=== PATIENT | female | born 1960 | race African-American/Black ===

== ENCOUNTER → 2016-07-17 | Outpatient (CLI) | payer MEDICARE, OTHER ==
[2016-03-08 17:45] VITALS: BP 178/77
[~2016-07-17] MED LIST: ACET325T21 PO; ALBU2.5V14 IH; AMLO10TA4 PO; AMLO5TAB2 PO; ASPI81TA50 PO; ATOR40TA59 PO; BUDE10.2 IH; CLON0.1T PO; CYCL10TA2 PO; ESOM40CA PO; ESOM40CA25 PO; FERR-26 AD; FLUT16SP2 NS; FLUT9.9S NS; HYDR-2868 PO; Hydrochlorothiazide PO; INSU100C4 SQ; INSU100I17 SQ; LEVO250T25 PO; LOSA50TA2 PO; METO10SO PO; MONT10TA6 PO; MONT10TA9 PO; NAPR250T2 PO; NAPR500T8 PO; OMAL150V SQ; OMEG1CAP2 PO; POLY17PO5 PO; POTA20TA4 PO; PRED-220 PO; SENN-22 PO; TELM40TA PO
--- NOTE | 2016-07-17 12:02 | RAD ---
DATE: 07/17/2016. EXAM: DIGITAL SCREEN BILAT W/CAD. HISTORY: Routine mammographic screening. COMPARISON: 01/25/2015. This study was interpreted with the benefit of Computerized Aided Detection (CAD). FINDINGS: The breast parenchyma is primarily fatty replaced. There is a new angular nodule inferior to the left nipple line m at the 6:00 position measuring 7 mm. Scattered coarse calcifications are unchanged. One cluster of calcifications posteriorly on the left is stable since 2010 and likely benign. There is no suspicious finding on the right. BI-RADS CATEGORY: 0 INCOMPLETE: NEEDS ADDITIONAL IMAGING EVALUATION AND/OR PRIOR MAMMOGRAMS FOR COMPARISON.. RECOMMENDED FOLLOW-UP: ADD ADDITIONAL IMAGING. Recommend spot compression of a new nodule at the left 6:00 position with sonography if necessary. PQRS compliance statement: Patient information was entered into a reminder system with a target due date (now) for the next mammogram. Mammography is a sensitive method for finding small breast cancers, but it does not detect them all and is not a substitute for careful clinical examination. A negative mammogram does not negate a clinically suspicious finding and should not result in delay in biopsying a clinically suspicious abnormality. "Our facility is accredited by the [employer] Mammography [employer]."
== END | disposition home or self-care (01) ==
LOC: MAMMO 10:12
PROVIDERS: ATTEND Internal Medicine
DX: Z12.31 Encounter for screening mammogram for malignant neoplasm of breast (principal)
CPT/HCPCS: G0202; 77067

== ENCOUNTER → 2016-07-24 | Outpatient (CLI) | payer MEDICARE, OTHER ==
[2016-03-08 17:45] VITALS: BP 178/77
--- NOTE | 2016-07-24 10:22 | RAD ---
Examination: Left breast diagnostic mammogram and targeted ultrasound the left breast History: History of nodule in the left breast Comparison: 07/27/2016 Technique: Part compression view of the left breast were performed. ML view of the left breast were performed. Targeted ultrasound of the left breast were performed from 6-9 o'clock position. Findings: On the spot compression views of the left breast , there is persistence of nodule at about 9:00 position. Targeted ultrasound the left breast there is a small 5 mm cystic structure containing some echogenicity within no significant vascular flow within. Impression: 5 mm cystic structure identified in the 9 o'clock position of the left breast containing some echogenicity within probably a cyst containing echogenicities within. BI-RADS Category 3. Probably benign findings. Recommend follow-up mammogram in 6 months.
== END | disposition home or self-care (01) ==
LOC: MAMMO 09:18
PROVIDERS: ATTEND Internal Medicine
DX: R92.8 Other abnormal and inconclusive findings on diagnostic imaging of breast (principal)
CPT/HCPCS: 76641; G0206; 77065

== ENCOUNTER → 2017-02-26 | Outpatient (CLI) | payer MEDICARE, OTHER ==
[2016-03-08 17:45] VITALS: BP 178/77
[~2017-02-26] MED LIST changes: -NAPR250T2 PO; +NAPR250T6 PO; +POLY17PO29 PO; -POLY17PO5 PO
--- NOTE | 2017-02-26 11:57 | RAD ---
DATE: 02/26/2017. EXAM: DIGITAL DIAGNOSTIC LT. HISTORY: Routine mammographic screening. COMPARISON: 07/24/2016, 07/17/2016, 01/25/2015. This study was interpreted with the benefit of Computerized Aided Detection (CAD). FINDINGS: The breast parenchyma shows scattered fibroglandular densities. Breast parenchyma level B.. The density of concern inferiorly on the MLO view and centrally on the CC view is unchanged since the prior study. This mammogram not correspond with a mildly complicated cyst on prior ultrasound. Elsewhere, coarse calcifications appear benign. There is no clearly suspicious finding. BI-RADS CATEGORY: 3 PROBABLY BENIGN FINDING(S)-SHORT INTERVAL FOLLOW-UP SUGGESTED. RECOMMENDED FOLLOW-UP: 6M 6 MONTH FOLLOW-UP. Continued attention to the density of concern posteriorly and inferiorly on the left when the patient returns for her bilateral study in 6 months. PQRS compliance statement: Patient information was entered into a reminder system with a target due date 08/27/2017 for the next mammogram. Mammography is a sensitive method for finding small breast cancers, but it does not detect them all and is not a substitute for careful clinical examination. A negative mammogram does not negate a clinically suspicious finding and should not result in delay in biopsying a clinically suspicious abnormality. "Our facility is accredited by the [employer] Mammography [employer]."
== END | disposition home or self-care (01) ==
LOC: MAMMO 11:10
PROVIDERS: ATTEND Internal Medicine
DX: R92.8 Other abnormal and inconclusive findings on diagnostic imaging of breast (principal)
CPT/HCPCS: G0206; 77065

== ENCOUNTER → 2017-07-23 | Outpatient (CLI) | payer MEDICARE, OTHER | END | disposition home or self-care (01) | LOC: US 11:02 | DX: M79.605 Pain in left leg (principal); M79.89 Other specified soft tissue disorders | CPT/HCPCS: 93971 ==

== ENCOUNTER → 2018-01-21 | Outpatient (CLI) | payer MEDICARE, OTHER ==
[2017-11-18 11:00] VITALS: BP 150/66
[~2018-01-21] MED LIST changes: -AMLO5TAB2 PO; +AMLO5TAB7 PO; +CARV12.52 PO; +CEPH250C PO; -FERR-26 AD; +FERR325T14 AD; +FLUT16SP NS; +FURO40TA4 PO; +GABA-586 PO; +LACT1CAP19 PO; +METO10TA PO; +METO10TA81 PO; +TRAM50TA PO
--- NOTE | 2018-01-21 10:51 | KCIC ---
EXAM: Dual energy x-ray absorptiometry (DEXA). HISTORY: Postmenopausal female presents for osteoporosis screening. COMPARISON: None. TECHNIQUE: Dual energy x-ray absorptiometry of the lumbar spine and left hip was performed. Calculation of bone mineral density based on standard deviations above or below the expected young adult normal value (T-score) was completed. FINDINGS: The average bone mineral density in the 1st through 4th lumbar vertebrae is 1.044 g/cmxcm, corresponding with a T-score of -0.0. The average total bone mineral density in the left hip is 0.887 g/cmxcm, corresponding with a T-score of -0.5. IMPRESSION: Normal bone mineral density. Note: Definitions established by the World Health Organization: 1. Normal: T-score is -1.0 or above. 2. Osteopenia: T-score is between -1.0 and -2.5 . 3. Osteoporosis: T-score is -2.5 or below. Electronically signed by: Divine Nazario MD (01/21/2018 10:48 AM) [facility]
== END | disposition home or self-care (01) ==
LOC: KCIC DEXA 09:42
PROVIDERS: ATTEND Internal Medicine
DX: M85.88 Other specified disorders of bone density and structure, other site (principal); M81.0 Age-related osteoporosis without current pathological fracture; Z78.0 Asymptomatic menopausal state
CPT/HCPCS: 77080

== ENCOUNTER 2018-10-25 21:50 | Emergency (ER) | payer MEDICARE, MEDICAID ==
[~2018-10-25] VITALS: Ht 134.6 cm; Wt 154.2 kg
[~2018-10-25 21:50] MED LIST changes: +AMLO5TAB10 PO; -AMLO5TAB7 PO; +CARV12.511 PO; -CARV12.52 PO; -GABA-586 PO; +GABA300C18 PO; +LOSA-73 PO; -LOSA50TA2 PO; +MONT10TA49 PO; -MONT10TA6 PO; -MONT10TA9 PO
[2018-10-25 23:36] LABS: BILIRUBIN,URINE NEGATIVE (NEG); CLARITY,URINE CLEAR; COLOR,URINE YELLOW; NITRITE,URINE NEGATIVE (NEG); PH,URINE 6.5; PROTEIN,URINE 100 mg/dL (NEG-TRACE); UROBILINOGEN,URINE 0.2 mg/dL (0.2 mg/dL)
[2018-10-25 23:42] LABS: BACTERIA,URINE FEW /HPF (0-FEW); RBC,URINE OCC /HPF (0-2)
[2018-10-25 23:43] LABS: SQUAMOUS EPITHELIAL CELL,UR MOD /LPF
[2018-10-25] MEDS ORDERED: ONDANSETRON PF 4 MG/2 ML VIAL. IV ONE (23:45)
[2018-10-25] MEDS ORDERED: FAMOTIDINE 20 MG/2 ML VIAL IVP ONE (23:45)
[2018-10-25] MEDS ORDERED: KETOROLAC 15 MG/ML VIAL. IV ONE (23:45)
[2018-10-25] MEDS ORDERED: IV NORMAL SALINE 1000ML BAG 1,000 ML IV ONE (23:45)
[2018-10-26 00:45] LABS: BASO # 0.1 x10^3/uL (0.0-0.2); BASO % 1 % (0-3); EOS # 0.3 x10^3/uL (0.0-0.7); EOS % 3 % (0-3); HEMATOCRIT 31.8 % (36.0-47.0); LYMPH # 1.8 x10^3/uL (1.0-4.8); LYMPH % 21 % (24-48); MEAN CORPUSCULAR HEMOGLOBIN 24 pg (25-35); MEAN CORPUSCULAR HGB CONC 31 g/dL (31-37); MEAN CORPUSCULAR VOLUME 77 fL (79-100); MONO # 0.7 x10^3/uL (0.0-1.1); MONO % 8 % (0-9); NEUT # 5.9 x10^3uL (1.8-7.7); NEUT % 66 % (31-73); PLATELET COUNT 299 x10^3/uL (140-400); RED BLOOD COUNT 4.12 x10^6/uL (3.50-5.40); RED CELL DISTRIBUTION WIDTH 16.4 % (11.5-14.5); WHITE BLOOD COUNT 8.8 x10^3/uL (4.0-11.0)
[2018-10-26 00:58] LABS: CALCIUM 9.4 mg/dL (8.5-10.1); CREATININE 0.6 mg/dL (0.6-1.0); GFR 123.4; POTASSIUM 3.8 mmol/L (3.5-5.1)
[2018-10-26 01:05] LABS: ALBUMIN 3.5 g/dL (3.4-5.0); ALBUMIN/GLOBULIN RATIO 0.8 (1.0-1.7); MAGNESIUM 1.9 mg/dL (1.8-2.4); TOTAL BILIRUBIN 0.4 mg/dL (0.2-1.0)
--- NOTE | 2018-10-26 01:38 | RAD ---
PQRS Compliance Statement: One or more of the following individualized dose reduction techniques were utilized for this examination: 1. Automated exposure control 2. Adjustment of the mA and/or kV according to patient size 3. Use of iterative reconstruction technique CT ABDOMEN PELVIS WO CONTRAST Clinical Indication: Abdominal pain, history of umbilical hernia. Comparison: CT abdomen and pelvis without contrast November 17, 2017. Technique: Helical CT imaging of the abdomen and pelvis is performed without IV or oral contrast. Findings: Evaluation of solid organs and bowel is limited without oral and IV contrast, decreasing sensitivity for detection of pathology. Lung bases are clear. Cardiac size normal. Tiny hiatal hernia. Hepatomegaly. Mild fatty infiltration of the liver. Focal fatty sparing along the gallbladder fossa. The gallbladder, spleen, pancreas, adrenal glands, abdominal aorta, and kidneys are normal. Stomach unremarkable. There is a supraumbilical hernia that contains loops of small bowel, unchanged from prior study. There is no small bowel obstruction. More inferiorly there is a second hernia near the umbilicus that contains a short loop of small bowel, also unchanged. There is no colon wall thickening. Moderate colon stool volume. The appendix is normal. No abdominal adenopathy or free fluid. Urinary bladder is mostly decompressed. Hysterectomy. No pelvic free fluid. Mildly enlarged bilateral inguinal lymph nodes are unchanged and may be reactive. Osteitis condensans ilii. IMPRESSION: 1. No acute abdominal or pelvic abnormality. 2. Unchanged ventral hernias containing nonobstructed small bowel. 3. Hepatomegaly. Mild fatty infiltration of the liver. Electronically signed by: Ryan Franklin MD (10/26/2018 1:35 AM) [facility]
[2018-10-26] MEDS ORDERED: NEOMY/BACITR/POLYMYXIN OINT PACKET. TP ONE (02:45)
[2018-10-26 03:10] VITALS: BP 178/86
[2018-10-26] MEDS ORDERED: MAGN296S9 PO (03:12)
[2018-10-26] MEDS ORDERED: SENN-121 PO (03:12)
[2018-10-26] MEDS ORDERED: ONDA4TAB12 PO (03:12)
[2018-10-26] MEDS ORDERED: METR500T PO (03:12)
--- NOTE | 2018-10-26 03:12 | PHYS DOC ---
Past Medical History Past Medical History: Diabetes-Type II, High Cholesterol, Hypertension Additional Past Medical Histor: abd Hernia Past Surgical History: Hysterectomy, Other Additional Past Surgical Histo: HERNIA REPAIR Alcohol Use: None Drug Use: None Adult General Chief Complaint Chief Complaint: ABDOMINAL PAIN HPI HPI Patient is a 58 year old [f__sex] who presents with [] Review of Systems Review of Systems Constitutional: Denies fever or chills [] Eyes: Denies change in visual acuity, redness, or eye pain [] HENT: Denies nasal congestion or sore throat [] Respiratory: Denies cough or shortness of breath [] Cardiovascular: No additional information not addressed in HPI [] GI: Denies abdominal pain, nausea, vomiting, bloody stools or diarrhea [] : Denies dysuria or hematuria [] Musculoskeletal: Denies back pain or joint pain [] Integument: Denies rash or skin lesions [] Neurologic: Denies headache, focal weakness or sensory changes [] Endocrine: Denies polyuria or polydipsia [] All other systems were reviewed and found to be within normal limits, except as documented in this note. Current Medications Current Medications Current Medications Medications (Trade) Dose Ordered Sig/Dorinda Start Time Stop Time Status Last Admin Dose Admin Famotidine (Pepcid Vial) 20 mg 1X ONCE 10/25/18 23:45 10/25/18 23:46 DC 10/26/18 00:56 20 MG Ketorolac Tromethamine (Toradol 15mg Vial) 15 mg 1X ONCE 10/25/18 23:45 10/25/18 23:46 DC 10/26/18 00:55 15 MG Metronidazole (Flagyl) 500 mg STK-MED ONCE 10/26/18 03:17 10/26/18 03:18 DC Neomycin/ Polymyxin/ Bacitracin (Triple Antibiotic Ointment) 1 pkt 1X ONCE 10/26/18 02:45 10/26/18 02:46 DC 10/26/18 03:18 1 PKT Ondansetron HCl (Zofran) 4 mg 1X ONCE 10/25/18 23:45 10/25/18 23:46 DC 10/26/18 00:55 4 MG Sodium Chloride 1,000 ml @ 1,000 mls/hr 1X ONCE 10/25/18 23:45 10/26/18 00:44 DC 10/26/18 00:54 1,000 MLS/HR Allergies Allergies Allergies Coded Allergies Type Severity Reaction Last Updated Verified diphenhydramine Allergy Severe ANAPHYLAXIS 01/24/16 Yes egg Allergy Severe Anaphylaxis 01/24/16 Yes salmeterol Allergy Severe Anaphylaxis, throat swells 01/24/16 Yes Iodinated Contrast- Oral and IV Dye Allergy Intermediate 01/24/16 Yes Penicillins Allergy Intermediate Hives, HAS TOLERATED CEPHALEXIN 08/29/17 Yes Sulfa (Sulfonamide Antibiotics) Allergy Intermediate Hives 01/24/16 Yes morphine Allergy Intermediate hives 01/24/16 Yes sulfamethoxazole Allergy Intermediate Hives 01/24/16 Yes trimethoprim Allergy Intermediate Hives 01/24/16 Yes Physical Exam Physical Exam Constitutional: Well developed, well nourished, no acute distress, non-toxic appearance. [] HENT: Normocephalic, atraumatic, bilateral external ears normal, oropharynx moist, no oral exudates, nose normal. [] Eyes: PERRLA, EOMI, conjunctiva normal, no discharge. [] Neck: Normal range of motion, no tenderness, supple, no stridor. [] Cardiovascular:Heart rate regular rhythm, no murmur [] Lungs & Thorax: Bilateral breath sounds clear to auscultation [] Abdomen: Bowel sounds normal, soft, no tenderness, no masses, no pulsatile masses. [] Skin: Warm, dry, no erythema, no rash. [] Back: No tenderness, no CVA tenderness. [] Extremities: No tenderness, no cyanosis, no clubbing, ROM intact, no edema. [] Neurologic: Alert and oriented X 3, normal motor function, normal sensory function, no focal deficits noted. [] Psychologic: Affect normal, judgement normal, mood normal. [] Current Patient Data Vital Signs Vital Signs Date Time Temp Pulse Resp B/P (MAP) Pulse Ox O2 Delivery O2 Flow Rate FiO2 10/26/18 03:10 178/86 (116) 10/26/18 00:34 78 20 98 Room Air 10/25/18 21:55 98.1 98.1 Lab Values Laboratory Tests Test 10/25/18 22:50 10/26/18 00:35 Urine Collection Type Unknown Urine Color Yellow Urine Clarity Clear Urine pH 6.5 Urine Specific [place] 1.020 Urine Protein 100 mg/dL (NEG-TRACE) Urine Glucose (UA) Negative mg/dL (NEG) Urine Ketones (Stick) Negative mg/dL (NEG) Urine Blood Negative (NEG) Urine Nitrite Negative (NEG) Urine Bilirubin Negative (NEG) Urine Urobilinogen Dipstick 0.2 mg/dL (0.2 mg/dL) Urine Leukocyte Esterase Negative (NEG) Urine RBC Occ /HPF (0-2) Urine WBC 1-4 /HPF (0-4) Urine Squamous Epithelial Cells Mod /LPF Urine Bacteria Few /HPF (0-FEW) Urine Mucus Mod /LPF White Blood Count 8.8 x10^3/uL (4.0-11.0) Red Blood Count 4.12 x10^6/uL (3.50-5.40) Hemoglobin 10.0 g/dL (12.0-15.5) L Hematocrit 31.8 % (36.0-47.0) L Mean Corpuscular Volume 77 fL (79-100) L Mean Corpuscular Hemoglobin 24 pg (25-35) L Mean Corpuscular Hemoglobin Concent 31 g/dL (31-37) Red Cell Distribution Width 16.4 % (11.5-14.5) H Platelet Count 299 x10^3/uL (140-400) Neutrophils (%) (Auto) 66 % (31-73) Lymphocytes (%) (Auto) 21 % (24-48) L Monocytes (%) (Auto) 8 % (0-9) Eosinophils (%) (Auto) 3 % (0-3) Basophils (%) (Auto) 1 % (0-3) Neutrophils # (Auto) 5.9 x10^3uL (1.8-7.7) Lymphocytes # (Auto) 1.8 x10^3/uL (1.0-4.8) Monocytes # (Auto) 0.7 x10^3/uL (0.0-1.1) Eosinophils # (Auto) 0.3 x10^3/uL (0.0-0.7) Basophils # (Auto) 0.1 x10^3/uL (0.0-0.2) Sodium Level 140 mmol/L (136-145) Potassium Level 3.8 mmol/L (3.5-5.1) Chloride Level 104 mmol/L (98-107) Carbon Dioxide Level 27 mmol/L (21-32) Anion Gap 9 (6-14) Blood Urea Nitrogen 10 mg/dL (7-20) Creatinine 0.6 mg/dL (0.6-1.0) Estimated GFR (Cockcroft-Gault) 123.4 BUN/Creatinine Ratio 17 (6-20) Glucose Level 108 mg/dL (70-99) H Lactic Acid Level 1.1 mmol/L (0.4-2.0) Calcium Level 9.4 mg/dL (8.5-10.1) Magnesium Level 1.9 mg/dL (1.8-2.4) Total Bilirubin 0.4 mg/dL (0.2-1.0) Aspartate Amino Transferase (AST) 16 U/L (15-37) Alanine Aminotransferase (ALT) 24 U/L (14-59) Alkaline Phosphatase 80 U/L (46-116) Creatine Kinase 88 U/L (26-192) Creatine Kinase MB (Mass) 0.9 ng/mL (0.0-3.6) Creatine Kinase MB Relative Index 1.0 % (0-4) Troponin I Quantitative < 0.017 ng/mL (0.000-0.055) Total Protein 8.0 g/dL (6.4-8.2) Albumin 3.5 g/dL (3.4-5.0) Albumin/Globulin Ratio 0.8 (1.0-1.7) L Lipase 140 U/L (73-393) Laboratory Tests 10/26/18 00:35 Laboratory Tests 10/26/18 00:35 Microbiology 10/26/18 Wet Prep - Final, Complete EKG EKG @0049 NSR at 81bpm, NO ST elevation, nonspecific t wave inversion III Radiology/Procedures Radiology/Procedures [] Course & Med Decision Making Course & Med Decision Making Pertinent Labs and Imaging studies reviewed. (See chart for details) [] Dragon Disclaimer Dragon Disclaimer This electronic medical record was generated, in whole or in part, using a voice recognition dictation system. Departure Departure Impression: Primary Impression: Abdominal pain Additional Impressions: Hernia Encounter for staple removal Bacterial vaginosis Constipation Disposition: HOME, SELF-CARE Condition: STABLE Referrals: HARINDER NOGUEIRA MD (PCP) KAT GOLDSTEIN MD Patient Instructions: Abdominal Pain (Nonspecific), Bacterial Vaginosis, [id number], Constipation, Adult, [id number], Hernia, [id number], Staple Removal, Care After Scripts Magnesium Citrate (MAGNESIUM CITRATE) 296 Ml Solution 296 ML PO ONCE PRN for CONSTIPATION, #296 ML Prov: HARINDER CHEW DO 10/26/18 Metronidazole (FLAGYL) 500 Mg Tablet 500 MG PO BID for Vaginosis for 7 Days, #14 TAB Prov: HARINDER CHEW DO 10/26/18 Ondansetron (ONDANSETRON ODT) 4 Mg Tab.rapdis 1 TAB PO PRN Q6-8HRS PRN for NAUSEA, #16 TAB Prov: HARINDER CHEW DO 10/26/18 Sennosides/Docusate Sodium (Colace 2-in-1 Tablet) 1 Each Tablet 1 EACH PO QHS, #30 TAB Prov: HARINDER CHEW DO 10/26/18 Problem Qualifiers Primary Impression: Abdominal pain Abdominal location: generalized Qualified Codes: R10.84 - Generalized abdominal pain Additional Impressions: Constipation Constipation type: unspecified constipation type Qualified Codes: K59.00 - Constipation, unspecified HARINDER CHEW DO Oct 26, 2018 03:12
[2018-10-26] MEDS ORDERED: metroNIDAZOLE 500 MG TABLET PO ONE (03:15)
[2018-10-26] MEDS ORDERED: metroNIDAZOLE 500 MG TABLET ONE (03:17)
--- NOTE | 2018-10-26 03:56 | EKG ---
[facility] [address] [place] [address] Test Date: 2018-10-26 Test Time: 00:49:45 Pat Name: YENNIFER CANCINO Department: Room: Gender: F [employer]ter [employer]: : 1960 Requested By: HARINDER CHEW Order Number: [id number] Reading MD: Measurements Intervals [place] Rate: 81 P: 64 ND: 172 QRS: -6 QRSD: 82 T: 4 QT: 358 QTc: 416 Interpretive Statements SINUS RHYTHM LEFTWARD AXIS QRS(T) CONTOUR ABNORMALITY CONSIDER ANTEROLATERAL MYOCARDIAL DAMAGE POSSIBLY ABNORMAL ECG RI6.01 Unconfirmed report No previous ECG available for comparison
[2018-10-27 15:17] LABS: GC PROBE Negative (Negative)
== END 2018-10-26 03:30 | disposition home or self-care (01) ==
LOC: ER 21:50
DX: K59.00 Constipation, unspecified (principal); K42.9 Umbilical hernia without obstruction or gangrene; N76.0 Acute vaginitis; B96.89 Other specified bacterial agents as the cause of diseases classified elsewhere; E11.9 Type 2 diabetes mellitus without complications; I10 Essential (primary) hypertension; E78.00 Pure hypercholesterolemia, unspecified; Z98.890 Other specified postprocedural states; Z90.710 Acquired absence of both cervix and uterus; Z88.5 Allergy status to narcotic agent; Z88.0 Allergy status to penicillin; Z88.1 Allergy status to other antibiotic agents; Z88.2 Allergy status to sulfonamides; Z91.041 Radiographic dye allergy status; Z91.012 Allergy to eggs; Z88.8 Allergy status to other drugs, medicaments and biological substances
CPT/HCPCS: 36415; 74176; 80053; 81001; 82553; 83605; 83690; 83735; 84484; 85025; 87040; 87491; 87591; 93005; 96374; 96375; 99285; J1885; J2405; J3490; J7030; Q0111

== ENCOUNTER 2020-05-05 04:08 | Emergency (ER) | payer MEDICARE, MEDICAID ==
[~2020-05-05] VITALS: Ht 134.6 cm; Wt 118.2 kg
[~2020-05-05 04:08] MED LIST changes: +AMLO-186 PO; -AMLO5TAB10 PO; +MAGN296S68 PO; +METR500T PO; +ONDA4TAB12 PO; +SENN-121 PO
--- NOTE | 2020-05-05 04:39 | PHYS DOC ---
Past Medical History Past Medical History: Diabetes-Type II, High Cholesterol, Hypertension, Other Additional Past Medical Histor: ABD HERNIA (KAT DEL REAL MD) Past Surgical History: Hysterectomy, Tonsillectomy, Other Additional Past Surgical Histo: ABD HERNIA REPAIR (KAT DEL REAL MD) Smoking Status: Never Smoker Alcohol Use: None Drug Use: None (KAT DEL REAL MD) General Adult EDM: Chief Complaint: CHEST PAIN HPI: HPI: Patient is a 60 year old female who presents with chief complaint of abdominal pain and chest pain. Patient states about 6 PM last night she began having periumbilical pain that radiates to her chest. Pain is described as a discomfort and pressure in nature. Patient has had associated shortness of breath with nausea vomiting. Pain is worse with palpation and better with rest. Patient has not had any diarrhea or constipation. Patient denies any fever. Pain is currently severe and intensity. (KAT DEL REAL MD) Review of Systems: Review of Systems: Constitutional: Denies fever or chills. [] Eyes: Denies change in visual acuity. [] HENT: Denies nasal congestion or sore throat. [] Respiratory: Denies cough but has had shortness of breath. [] Cardiovascular: Complains of chest pain with some swelling in the legs GI: Complains abdominal pain with nausea vomiting but no blood in the stool or diarrhea or constipation : Denies dysuria. [] Musculoskeletal: Denies back pain or joint pain. [] Integument: Denies rash. [] Neurologic: Denies headache, focal weakness or sensory changes. [] Endocrine: Denies polyuria or polydipsia. [] Lymphatic: Denies swollen glands. [] Psychiatric: Denies depression or anxiety. [] (KAT DEL REAL MD) Heart Score: HEART Score for Chest Pain: HEART Score for Chest Pain Response (Comments) Value History Moderately Suspicious 1 ECG Nonspecific Repolarizatio 1 Age >45 - < 65 1 Risk Factors >3 Risk Factors or Hx CAD 2 Total 5 Risk Factors: Risk Factors: DM, Current or recent (<one month) smoker, HTN, HLP, family history of CAD, obesity. Risk Scores: Score 0 - 3: 2.5% MACE over next 6 weeks - Discharge Home Score 4 - 6: 20.3% MACE over next 6 weeks - Admit for Clinical Observation Score 7 - 10: 72.7% MACE over next 6 weeks - Early Invasive Strategies (KAT DEL REAL MD) Current Medications: Current Medications Ondansetron HCl (Zofran) 4 mg 1X ONCE IVP Last administered on 05/05/20at 04:54; Start 05/05/20 at 04:45; Stop 05/05/20 at 04:46; Status DC Sodium Chloride 1,000 ml @ 1,000 mls/hr 1X ONCE IV Last administered on 05/05at 04:54; Start 05/05/20 at 04:45; Stop 05/05/20 at 05:44; Status DC Barium Sulfate (Readi-Cat 2) 900 ml 1X ONCE PO ; Start 05/05/20 at 05:15; Stop 05/05/20 at 05:16; Status DC Active Scripts Active Magnesium Citrate 296 Ml Solution 296 Ml PO ONCE PRN Flagyl (Metronidazole) 500 Mg Tablet 500 Mg PO BID 7 Days Ondansetron Odt (Ondansetron) 4 Mg Tab.rapdis 1 Tab PO PRN Q6-8HRS PRN Colace 2-in-1 Tablet (Sennosides/Docusate Sodium) 1 Each Tablet 1 Each PO QHS Metoclopramide Hcl 10 Mg Tablet 10 Mg PO QIDACHS 30 Days Cozaar (Losartan Potassium) 50 Mg Tablet 100 Mg PO DAILY 30 Days Atorvastatin Calcium 40 Mg Tablet 40 Mg PO QHS 30 Days Montelukast Sodium Tablet (Montelukast Sodium) 10 Mg Tablet 10 Mg PO QHS Klor-Con M20 (Potassium Chloride) 20 Meq Tablet.er 20 Meq PO DAILYWBKFT Reported Furosemide 40 Mg Tablet 1 Tab PO DAILY Fluticasone Propionate Nasal Eldena (Fluticasone Propionate) 16 Gm Eldena.susp 2 Eldena NS DAILY Amlodipine Besylate 5 Mg Tablet 5 Mg PO DAILY Ferrous Sulfate 325 Mg Tablet 325 Mg AD DAILY LAST DOSE: 10/03/15 AM NEXT DOSE: 10/04/15 AM Nexium Capsule (Esomeprazole Magnesium) 40 Mg Capsule.dr 40 Mg PO DAILYAC LAST DOSE: 10/03/15 AM NEXT DOSE: 10/04/15 AM Aspir-Low (Aspirin) 81 Mg Tablet.dr 1 Tab PO DAILY LAST DOSE: 10/03/15 AM NEXT DOSE: 10/04/15 AM Albuterol Sulfate Conc Neb Soln (Albuterol Sulfate) 2.5 Mg/0.5 Ml Vial.neb 2.5 Mg IH TID (KAT DEL REAL MD) Allergies: Allergies: Allergies Coded Allergies Type Severity Reaction Last Updated Verified diphenhydramine Allergy Severe ANAPHYLAXIS 01/24/16 Yes egg Allergy Severe Anaphylaxis 01/24/16 Yes salmeterol Allergy Severe Anaphylaxis, throat swells 01/24/16 Yes Iodinated Contrast Media Allergy Intermediate 01/24/16 Yes Penicillins Allergy Intermediate Hives, HAS TOLERATED CEPHALEXIN 08/29/17 Yes Sulfa (Sulfonamide Antibiotics) Allergy Intermediate Hives 01/24/16 Yes morphine Allergy Intermediate hives 01/24/16 Yes sulfamethoxazole Allergy Intermediate Hives 01/24/16 Yes trimethoprim Allergy Intermediate Hives 01/24/16 Yes (KAT DEL REAL MD) Physical Exam: PE: Constitutional: Well developed, well nourished, mild distress HENT: Normocephalic, atraumatic, bilateral external ears normal, no trismus nose normal. [] Eyes: PERRLA, EOMI, conjunctiva normal, no discharge. [] Neck: Normal range of motion, no tenderness, supple, no stridor. [] Cardiovascular:Heart rate regular rhythm, peripheral pulses intact cap refill is brisk Lungs & Thorax: Diminished breath sounds bilaterally Abdomen: Abdomen soft with tenderness mostly in the periumbilical area, there a ppears to be umbilical hernia that is tender. No guarding or rebound, no masses, no pulsatile masses Skin: Warm, dry, no erythema, no rash. [] Back: No tenderness, no CVA tenderness. [] Extremities: No tenderness, no cyanosis, no clubbing, ROM intact, mild bilateral lower extremity edema Neurologic: Alert and oriented X 3, normal motor function, normal sensory function, no focal deficits noted. [] Psychologic: Affect normal, judgement normal, mood normal. [] (KAT DEL REAL MD) Current Patient Data: Labs: Laboratory Tests Test 05/05/20 04:40 05/05/20 04:41 Urine Collection Type Unknown Urine Color Yellow Urine Clarity Clear Urine pH 7.5 Urine Specific [place] 1.010 Urine Protein 100 mg/dL Urine Glucose (UA) 100 mg/dL Urine Ketones (Stick) 15 mg/dL Urine Blood Negative Urine Nitrite Negative Urine Bilirubin Negative Urine Urobilinogen Dipstick 0.2 mg/dL Urine Leukocyte Esterase Negative Urine RBC 0 /HPF Urine WBC Rare /HPF Urine Squamous Epithelial Cells Few /LPF Urine Bacteria Few /HPF White Blood Count 11.1 x10^3/uL Red Blood Count 4.47 x10^6/uL Hemoglobin 10.4 g/dL Hematocrit 33.4 % Mean Corpuscular Volume 75 fL Mean Corpuscular Hemoglobin 23 pg Mean Corpuscular Hemoglobin Concent 31 g/dL Red Cell Distribution Width 17.2 % Platelet Count 361 x10^3/uL Neutrophils (%) (Auto) 86 % Lymphocytes (%) (Auto) 8 % Monocytes (%) (Auto) 6 % Eosinophils (%) (Auto) 0 % Basophils (%) (Auto) 0 % Neutrophils # (Auto) 9.6 x10^3/uL Lymphocytes # (Auto) 0.9 x10^3/uL Monocytes # (Auto) 0.6 x10^3/uL Eosinophils # (Auto) 0.0 x10^3/uL Basophils # (Auto) 0.0 x10^3/uL Segmented Neutrophils % 82 % Lymphocytes % 13 % Monocytes % 4 % Eosinophils % 1 % Platelet Estimate Adequate Hypochromasia Slight Anisocytosis Slight Microcytosis Slight Prothrombin Time 12.6 SEC Prothromb Time International Ratio 1.0 Activated Partial Thromboplast Time 28 SEC Current Medications Medications (Trade) Dose Ordered Sig/Dorinda Route PRN Reason Start Time Stop Time Status Last Admin Dose Admin Ondansetron HCl (Zofran) 4 mg 1X ONCE IVP 05/05/20 04:45 05/05/20 04:46 DC 05/05/20 04:54 Sodium Chloride 1,000 ml @ 1,000 mls/hr 1X ONCE IV 05/05/20 04:45 05/05/20 05:44 DC 05/05/20 04:54 Barium Sulfate (Readi-Cat 2) 900 ml 1X ONCE PO 05/05/20 05:15 05/05/20 05:16 DC Vital Signs: Vital Signs Date Time Temp Pulse Resp B/P (MAP) Pulse Ox O2 Delivery O2 Flow Rate FiO2 05/05/20 05:33 100 194/79 (117) 98 Room Air 05/05/20 05:03 92 190/85 (120) 98 Room Air 05/05/20 04:57 100 199/92 (127) 99 Room Air 05/05/20 04:20 96.7 94 24 184/82 (116) 99 Room Air 96.7 (KAT DEL REAL MD) EKG: EKG: [] EKG interpreted by me normal sinus rhythm with a rate of 93 left axis shelton ation, left bundle branch block, prolonged QTC nonspecific ST changes (KAT DEL REAL MD) Radiology/Procedures: Radiology/Procedures: [] (KAT DEL REAL MD) Course & Med Decision Making: Course & Med Decision Making Pertinent Labs and Imaging studies reviewed. (See chart for details) [] 5:45 AM patient actively vomiting the contrast. 60-year-old female presents with abdominal pain radiating to her chest. Patient has a helical hernia that is tender, I worry it may be incarcerated. Patient is actively vomiting. Patient's initial blood was hemolyzed therefore was recent. Patient CT, chest x-ray read and chemistry are pending and care will be signed over to Dr. Lo to follow-up on these as well as her disposition. (KAT DEL REAL MD) Course & Med Decision Making Assumed care of patient at checkout. At checkout patient had lab work and a CT abdomen pelvis that was pending. She presented to the emergency room with chest pain and periumbilical pain. Per previous physician's evaluation patient did not have any true significant chest pain and mostly had abdominal pain with nausea and vomiting. CT abdomen pelvis does not show an acute obstruction. It is unchanged from previous CT. Patient had a single episode of vomiting here in emergency room which resolved prior to me taking her care. I did offer the patient admission for evaluation by a surgery and potentially cardiology. At this time the patient declines. She does not want to be admitted. She wants to go home with nausea medicine. We have discussed that if her symptoms return that she should return immediately to the emergency room for reevaluation and admission. Patient's test results and vitals while in the ED were fully reviewed and discussed with the patient. Patient is stable and at this time does not need admission to the hospital. We have discussed strict return precautions and the importance of following up with their Primary Care Physician. Patient stated understanding and was given an opportunity to ask any questions. Patient is in agreement with plan. (RAFAELA LO MD) Karen Disclaimer: [place] Disclaimer: This electronic medical record was generated, in whole or in part, using a voice recognition dictation system. (KAT DEL REAL MD) Departure Departure Impression: Primary Impression: Abdominal pain Additional Impressions: Nausea and vomiting Chest pain Disposition: 01 DC HOME SELF CARE/HOMELESS Condition: STABLE Referrals: HARINDER NOGUEIRA MD (PCP) Patient Instructions: Hernia, Nausea and Vomiting Scripts Ondansetron Hcl (ZOFRAN) 4 Mg Tablet 1 TAB PO PRN Q6-8HRS for nausea, #12 TAB Prov: RAFAELA LO MD 05/05/20 KAT DEL REAL MD May 05, 2020 04:39 RAFAELA LO MD May 05, 2020 08:10
[2020-05-05] MEDS ORDERED: IV NORMAL SALINE 1000ML BAG 1,000 ML IV ONE (04:45)
[2020-05-05] MEDS ORDERED: ONDANSETRON PF 4 MG/2 ML VIAL. IVP ONE (04:45)
[2020-05-05 05:01] LABS: BASO % 0 % (0-3); EOS % 0 % (0-3); HEMATOCRIT 33.4 % (36.0-47.0); HEMOGLOBIN 10.4 g/dL (12.0-15.5); LYMPH # 0.9 x10^3/uL (1.0-4.8); LYMPH % 8 % (24-48); MEAN CORPUSCULAR HEMOGLOBIN 23 pg (25-35); MEAN CORPUSCULAR HGB CONC 31 g/dL (31-37); MEAN CORPUSCULAR VOLUME 75 fL (79-100); MONO # 0.6 x10^3/uL (0.0-1.1); MONO % 6 % (0-9); NEUT # 9.6 x10^3/uL (1.8-7.7); NEUT % 86 % (31-73); PLATELET COUNT 361 x10^3/uL (140-400); RED BLOOD COUNT 4.47 x10^6/uL (3.50-5.40); RED CELL DISTRIBUTION WIDTH 17.2 % (11.5-14.5); WHITE BLOOD COUNT 11.1 x10^3/uL (4.0-11.0)
[2020-05-05 05:01] LABS: BILIRUBIN,URINE NEGATIVE (NEG); CLARITY,URINE CLEAR; COLOR,URINE YELLOW; NITRITE,URINE NEGATIVE (NEG); PH,URINE 7.5 (<5.0-8.0); PROTEIN,URINE 100 mg/dL (NEG-TRACE); UROBILINOGEN,URINE 0.2 mg/dL (0.2 mg/dL)
[2020-05-05 05:10] LABS: PROTHROMBIN TIME PATIENT 12.6 SEC (11.7-14.0)
[2020-05-05] MEDS ORDERED: BARIUM SULFATE 2.1% 450 ML SUSP PO ONE (05:15)
[2020-05-05 05:18] LABS: BACTERIA,URINE FEW /HPF (0-FEW); RBC,URINE 0 /HPF (0-2); WBC,URINE RARE /HPF (0-4)
[2020-05-05 05:37] LABS: % EOS 1 % (0-5); % LYMPHS 13 % (24-48); % MONOS 4 % (0-10); % SEGS 82 % (35-66); ANISOCYTOSIS SLIGHT; HYPOCHROMIA SLIGHT; MICROCYTOSIS SLIGHT; PLT ESTIMATE ADEQUATE (ADEQUATE)
--- NOTE | 2020-05-05 05:45 | RAD ---
Single view chest dated 05/05/2020. Comparison made to 11/17/2017. CLINICAL INDICATION: Chest pain. FINDINGS: Single upright portable exam performed. Heart and mediastinal contours are stable. Lungs are clear. N o consolidation or pleural effusion. No pneumothorax. IMPRESSION: No acute radiographic abnormality. Electronically signed by: Salomon Barrientos MD (05/05/2020 5:42 AM) [facility]
[2020-05-05] MEDS ORDERED: PROCHLORPERAZINE 10 MG/2 ML VIAL. IV ONE (06:00)
[2020-05-05 06:38] LABS: CALCIUM 9.2 mg/dL (8.5-10.1); CREATININE 0.7 mg/dL (0.6-1.0); GFR 102.6; POTASSIUM 3.6 mmol/L (3.5-5.1)
[2020-05-05 06:44] LABS: ALBUMIN 3.5 g/dL (3.4-5.0); ALBUMIN/GLOBULIN RATIO 0.7 (1.0-1.7); TOTAL BILIRUBIN 0.3 mg/dL (0.2-1.0); TOTAL PROTEIN 8.8 g/dL (6.4-8.2)
--- NOTE | 2020-05-05 06:55 | RAD ---
CT abdomen pelvis with contrast dated 05/05/2020. Comparison made to October 26, 2018. CLINICAL INDICATION: Abdominal pain. TECHNIQUE: Contiguous axial imaging the abdomen pelvis on the administration of oral contrast only. One or more of the following individualized dose reduction techniques were utilized for this examinat ion: 1. Automated exposure control 2. Adjustment of the mA and/or kV according to patient size 3. Use of iterative reconstruction technique FINDINGS: Limited images of lung bases are clear. Heart size within normal limits. No pleural or pericardial ef fusion. Solid abdominal viscera not well evaluated in the absence of contrast material. No apparent attenuati on abnormality of the liver or spleen. Pancreas, adrenal glands and gallbladder are unremarkable. Kidneys are symmetric in size and attenuation. No calcific renal or ureteral stone. No hydronephrosis . Partially opacified GI tract normal in caliber and contour. No focal bowel wall thickening. The appen evette is normal in caliber. There is a prominent supraumbilical ventral hernia containing loops of smal l bowel, unchanged. There is also a infraumbilical ventral hernia containing loops of small bowel, si milar to prior study. No bowel obstruction. Images of pelvis show nondistended urinary bladder. The uterus is surgically absent. No free fluid or lymphadenopathy. Bone windows show no acute findings. Multilevel spondylosis. IMPRESSION: 1. There are prominent supraumbilical and infraumbilical ventral hernias containing small bowel loops , unchanged from prior study. No evidence of bowel obstruction. 2. Otherwise no acute findings. Normal appendix. 3. Status post hysterectomy. Electronically signed by: Salomon Barrientos MD (05/05/2020 6:53 AM) [facility]
[2020-05-05] MEDS ORDERED: LABETALOL 20 MG/4 ML DISP.SYRIN. IVP ONE (07:15)
[2020-05-05] MEDS ORDERED: fentaNYL PF VIAL 100 MCG/2 ML VIAL IVP ONE (07:30)
[2020-05-05] MEDS ORDERED: ONDA4TAB7 PO (08:09)
[2020-05-05 08:13] VITALS: BP 169/89
--- NOTE | 2020-05-07 11:37 | NUR ---
IP: Informed pt of negative COVID test. Pt verbalized understanding.
== END 2020-05-05 08:32 | disposition home or self-care (01) ==
LOC: ER 04:08
DX: R10.33 Periumbilical pain (principal); R11.2 Nausea with vomiting, unspecified; R07.89 Other chest pain; Z20.828 Contact with and (suspected) exposure to other viral communicable diseases; R06.02 Shortness of breath; E11.9 Type 2 diabetes mellitus without complications; E78.00 Pure hypercholesterolemia, unspecified; I10 Essential (primary) hypertension; Z90.710 Acquired absence of both cervix and uterus; Z88.1 Allergy status to other antibiotic agents; Z88.2 Allergy status to sulfonamides; Z88.5 Allergy status to narcotic agent; Z91.041 Radiographic dye allergy status; Z91.012 Allergy to eggs; Z88.8 Allergy status to other drugs, medicaments and biological substances
CPT/HCPCS: 36415; 71045; 74176; 80053; 81001; 83690; 83880; 84484; 85007; 85025; 85610; 85730; 96361; 96374; 96375; 99285; C9803; J0780; J2405; J3010; J3490; J7030; U0003

== ENCOUNTER 2021-02-19 02:35 | Inpatient (IN) | payer MEDICARE, MEDICAID ==
[~2021-02-19] VITALS: Ht 134.6 cm; Wt 106.9 kg
[~2021-02-19 02:35] MED LIST changes: +ALBU2.5V14 NEB; +ALBU2.5V8 IH; +AMLO-187 PO; +AZIT250T PO; +METF500T PO; +METH4TAB2 PO; +NAPR-699 PO; -NAPR250T6 PO; +ONDA4TAB7 PO; +POTA-121 PO; -POTA20TA4 PO; +PRED20TA PO
--- NOTE | 2021-02-19 03:29 | ED.ADGEN ---
Past Medical History Past Medical History: Asthma, Diabetes-Type II, High Cholesterol, Hypertension, Other Additional Past Medical Histor: ABD HERNIA Past Surgical History: Other Additional Past Surgical Histo: ABD HERNIA REPAIR Smoking Status: Never Smoker Alcohol Use: None Drug Use: None General Adult EDM: Chief Complaint: CHEST PAIN-CARDIAC NATURE HPI: HPI: Patient is a 60 year old female presenting with substernal burning chest pain that started just over hour prior to arrival at about 1 AM. Patient states she was laying down getting ready to go to sleep when the pain came on suddenly. There is also a sharp intermittent component. Patient states that after that she felt a burning sensation throughout her body. Denies any shortness of b reath, cough, recent trauma. Patient states she has slight headache after symptoms began as well. No nausea or diaphoresis, no lightheadedness. Patient denies any cardiac history. History of hypertension and diabetes. No significant family medical history. Patient denies any use of tobacco, alcohol, or drugs. Patient received her first dose of [place] vaccine less than 1 week ago. Patient states the pain is worse with laying down flat and somewhat relieved by sitting up. Also tender to palpation Review of Systems: Review of Systems: All other systems within normal limits except for as noted in the HPI Current Medications: Current Medications Medications (Trade) Dose Ordered Sig/Dorinda Start Time Stop Time Status Last Admin Dose Admin Aspirin (Aspirin Chewable) 324 mg 1X ONCE 02/19/21 04:00 02/19/21 04:01 DC 02/19/21 03:46 324 MG Allergies: Allergies: Allergies Coded Allergies Type Severity Reaction Last Updated Verified diphenhydramine Allergy Severe ANAPHYLAXIS 01/24/16 Yes egg Allergy Severe Anaphylaxis 01/24/16 Yes salmeterol Allergy Severe Anaphylaxis, throat swells 08/29/20 Yes Iodinated Contrast Media Allergy Intermediate 01/24/16 Yes Penicillins Allergy Intermediate Hives, HAS TOLERATED CEPHALEXIN 08/29/17 Yes Sulfa (Sulfonamide Antibiotics) Allergy Intermediate Hives 01/24/16 Yes morphine Allergy Intermediate hives 01/24/16 Yes sulfamethoxazole Allergy Intermediate Hives 01/24/16 Yes trimethoprim Allergy Intermediate Hives 01/24/16 Yes Physical Exam: PE: Constitutional: Well developed, well nourished, no acute distress, non-toxic appearance. [] HENT: Normocephalic, atraumatic, bilateral external ears normal, nose normal. [] Eyes: PERRLA, conjunctiva normal, no discharge. [] Neck: No rigidity, supple, no stridor. [] Cardiovascular: Regular rate and rhythm, brisk cap refill. Chest wall tenderness palpation [] Lungs & Thorax: Non labored symmetric respirations, no tachypnea or respiratory distress [] Abdomen: Soft, nondistended. Skin: Warm, dry, no erythema, no rash. [] Back: Unremarkable Extremities: No deformities, range of motion grossly intact, no lower extremity edema [] Neurologic: Alert and oriented X 3, no focal deficits noted. [] Psychologic: Affect normal, judgement normal, mood normal. [] Current Patient Data: Labs: Laboratory Tests Test 02/19/21 03:31 02/19/21 03:37 White Blood Count 9.2 x10^3/uL (4.0-11.0) Red Blood Count 4.16 x10^6/uL (3.50-5.40) Hemoglobin 10.1 g/dL (12.0-15.5) L Hematocrit 32.2 % (36.0-47.0) L Mean Corpuscular Volume 77 fL (79-100) L Mean Corpuscular Hemoglobin 24 pg (25-35) L Mean Corpuscular Hemoglobin Concent 31 g/dL (31-37) Red Cell Distribution Width 16.3 % (11.5-14.5) H Platelet Count 315 x10^3/uL (140-400) Neutrophils (%) (Auto) 71 % (31-73) Lymphocytes (%) (Auto) 16 % (24-48) L Monocytes (%) (Auto) 9 % (0-9) Eosinophils (%) (Auto) 3 % (0-3) Basophils (%) (Auto) 1 % (0-3) Neutrophils # (Auto) 6.6 x10^3/uL (1.8-7.7) Lymphocytes # (Auto) 1.5 x10^3/uL (1.0-4.8) Monocytes # (Auto) 0.8 x10^3/uL (0.0-1.1) Eosinophils # (Auto) 0.3 x10^3/uL (0.0-0.7) Basophils # (Auto) 0.1 x10^3/uL (0.0-0.2) Prothrombin Time 13.1 SEC (11.7-14.0) Prothrombin Time INR 1.0 (0.8-1.1) D-Dimer (Amarilys) 0.29 ug/mlFEU (0.00-0.50) Sodium Level 140 mmol/L (136-145) Potassium Level 4.2 mmol/L (3.5-5.1) Chloride Level 104 mmol/L (98-107) Carbon Dioxide Level 27 mmol/L (21-32) Anion Gap 9 (6-14) Blood Urea Nitrogen 10 mg/dL (7-20) Creatinine 0.7 mg/dL (0.6-1.0) Estimated GFR (Cockcroft-Gault) 102.6 BUN/Creatinine Ratio 14 (6-20) Glucose Level 146 mg/dL (70-99) H Calcium Level 8.9 mg/dL (8.5-10.1) Phosphorus Level 3.2 mg/dL (2.6-4.7) Magnesium Level 1.9 mg/dL (1.8-2.4) Total Bilirubin 0.2 mg/dL (0.2-1.0) Aspartate Amino Transferase (AST) 20 U/L (15-37) Alanine Aminotransferase (ALT) 22 U/L (14-59) Alkaline Phosphatase 96 U/L (46-116) Creatine Kinase 117 U/L (26-192) Myoglobin 21 ng/mL (9-82) Troponin I Quantitative < 0.017 ng/mL (0.000-0.055) FK-Grh-S-Type Natriuretic Peptide 43 pg/mL (0-124) Total Protein 8.5 g/dL (6.4-8.2) H Albumin 3.5 g/dL (3.4-5.0) Albumin/Globulin Ratio 0.7 (1.0-1.7) L Lipase 210 U/L (73-393) Urine Collection Type Unknown Urine Color Yellow Urine Clarity Clear Urine pH 7.5 (<5.0-8.0) Urine Specific [place] 1.015 (1.000-1.030) Urine Protein Negative mg/dL (NEG-TRACE) Urine Glucose (UA) 100 mg/dL (NEG) Urine Ketones (Stick) Negative mg/dL (NEG) Urine Blood Negative (NEG) Urine Nitrite Negative (NEG) Urine Bilirubin Negative (NEG) Urine Urobilinogen Dipstick 0.2 mg/dL (0.2 mg/dL) Urine Leukocyte Esterase Negative (NEG) Urine RBC 0 /HPF (0-2) Urine WBC 0 /HPF (0-4) Urine Squamous Epithelial Cells Few /LPF Urine Bacteria 0 /HPF (0-FEW) Urine Mucus Slight /LPF Laboratory Tests 02/19/21 03:31 Laboratory Tests 02/19/21 03:31 Vital Signs: Vital Signs Date Time Temp Pulse Resp B/P (MAP) Pulse Ox O2 Delivery O2 Flow Rate FiO2 02/19/21 02:50 98.3 98 18 170/110 (130) 100 98.3 EKG: EKG: Sinus rhythm with a left bundle branch block (not seen in EKG dated 10-07-20) no STEMI criteria, QT prolongation [] Heart Score: C/O Chest Pain: Yes HEART Score for Chest Pain: HEART Score for Chest Pain Response (Comments) Value History Moderately Suspicious 1 ECG Nonspecific Repolarizatio 1 Age >45 - < 65 1 Risk Factors >3 Risk Factors or Hx CAD 2 Troponin < Normal Limit 0 Total 5 Risk Factors: Risk Factors: DM, Current or recent (<one month) smoker, HTN, HLP, family history of CAD, obesity. Risk Scores: Score 0 - 3: 2.5% MACE over next 6 weeks - Discharge Home Score 4 - 6: 20.3% MACE over next 6 weeks - Admit for Clinical Observation Score 7 - 10: 72.7% MACE over next 6 weeks - Early Invasive Strategies Radiology/Procedures: Radiology/Procedures: [facility] [address] [place] [address] IMAGING REPORT Signed PATIENT: YENNIFER CANCINO ACCOUNT: [id number] : 1960 LOCATION: ER AGE: 60 SEX: F EXAM STATUS: PRE ER ORD. PHYSICIAN: ERNESTINE BEACH MD REASON: chest pain PROCEDURE: CHEST AP ONLY XR CHEST 1V History: Reason: chest pain / Spl. Instructions: / History: Comparison: October 07, 2020 Findings: Mild ill-defined bibasilar opacities. No pleural effusion. No pneumothorax. Unchanged heart size. Impression: 1. Mild ill-defined bibasilar opacities, may represent atelectasis or developing infiltrates. Electronically signed by: Augie Contreras DO (02/19/2021 3:45 AM) [facility] DICTATED and SIGNED BY: AUGIE CONTRERAS DO DATE: 02/19/21 [id number] [] Course & Med Decision Making: Course & Med Decision Making Pertinent Labs and Imaging studies reviewed. (See chart for details) Discussed with patient's primary care provider, Dr. Nogueira. Will accept admitting patient for chest pain observation. Consult to cardiology placed for chest pain and new left bundle branch block [] Dragon Disclaimer: Dragon Disclaimer: This electronic medical record was generated, in whole or in part, using a voice recognition dictation system. Departure Departure Impression: Primary Impression: Chest pain Disposition: ADMITTED INPATIENT Admitting Physician: Salomon Nogueira Condition: STABLE Referrals: SALOMON NOGUEIRA MD (PCP) ERNESTINE BEACH MD Feb 19, 2021 03:29
[2021-02-19 03:40] LABS: BASO # 0.1 x10^3/uL (0.0-0.2); BASO % 1 % (0-3); EOS # 0.3 x10^3/uL (0.0-0.7); EOS % 3 % (0-3); HEMATOCRIT 32.2 % (36.0-47.0); HEMOGLOBIN 10.1 g/dL (12.0-15.5); LYMPH # 1.5 x10^3/uL (1.0-4.8); LYMPH % 16 % (24-48); MEAN CORPUSCULAR HEMOGLOBIN 24 pg (25-35); MEAN CORPUSCULAR HGB CONC 31 g/dL (31-37); MEAN CORPUSCULAR VOLUME 77 fL (79-100); MONO # 0.8 x10^3/uL (0.0-1.1); MONO % 9 % (0-9); NEUT # 6.6 x10^3/uL (1.8-7.7); NEUT % 71 % (31-73); PLATELET COUNT 315 x10^3/uL (140-400); RED BLOOD COUNT 4.16 x10^6/uL (3.50-5.40); RED CELL DISTRIBUTION WIDTH 16.3 % (11.5-14.5); WHITE BLOOD COUNT 9.2 x10^3/uL (4.0-11.0)
[2021-02-19 03:44] LABS: BILIRUBIN,URINE NEGATIVE (NEG); CLARITY,URINE CLEAR; COLOR,URINE YELLOW; NITRITE,URINE NEGATIVE (NEG); PH,URINE 7.5 (<5.0-8.0); PROTEIN,URINE NEGATIVE (NEG-TRACE); UROBILINOGEN,URINE 0.2 mg/dL (0.2 mg/dL)
--- NOTE | 2021-02-19 03:48 | RAD ---
XR CHEST 1V History: Reason: chest pain / Spl. Instructions: / History: Comparison: October 07, 2020 Findings: Mild ill-defined bibasilar opacities. No pleural effusion. No pneumothorax. Unchanged heart size. Impression: 1. Mild ill-defined bibasilar opacities, may represent atelectasis or developing infiltrates. Electronically signed by: Augie Contreras DO (02/19/2021 3:45 AM) [facility]
[2021-02-19 03:50] LABS: PROTHROMBIN TIME PATIENT 13.1 SEC (11.7-14.0)
[2021-02-19 03:51] LABS: CALCIUM 8.9 mg/dL (8.5-10.1); CREATININE 0.7 mg/dL (0.6-1.0); GFR 102.6; POTASSIUM 4.2 mmol/L (3.5-5.1)
[2021-02-19 03:54] LABS: BACTERIA,URINE 0 /HPF (0-FEW); RBC,URINE 0 /HPF (0-2); WBC,URINE 0 /HPF (0-4)
--- NOTE | 2021-02-19 03:55 | EKG ---
[facility] [address] [place] [address] Test Date: 2021-02-19 Test Time: 02:51:13 Pat Name: YENNIFER CANCINO Department: Room: Gender: F [employer]: : 1960 Requested By: ERNESTINE BEACH Order Number: [id number] Reading MD: Mehdi Powers MD Measurements Intervals Harvest Rate: 87 P: 66 AK: 168 QRS: 13 QRSD: 116 T: 157 QT: 404 QTc: 487 Interpretive Statements SINUS RHYTHM LBBB Electronically Signed On 02-19-2021 11:51:26 CDT by Mehdi Powers MD
[2021-02-19 03:57] LABS: ALBUMIN 3.5 g/dL (3.4-5.0); ALBUMIN/GLOBULIN RATIO 0.7 (1.0-1.7); MAGNESIUM 1.9 mg/dL (1.8-2.4); PHOSPHORUS 3.2 mg/dL (2.6-4.7); TOTAL BILIRUBIN 0.2 mg/dL (0.2-1.0); TOTAL PROTEIN 8.5 g/dL (6.4-8.2)
[2021-02-19] MEDS ORDERED: ASPIRIN CHEWABLE 81 MG TABLET. PO ONE (04:00)
[2021-02-19 04:02] LABS: CREATINE KINASE 117 U/L (26-192); MYOGLOBIN 21 ng/mL (9-82)
[2021-02-19] MEDS ORDERED: ONDANSETRON PF 4 MG/2 ML VIAL. IVP PRN (04:30)
[2021-02-19] MEDS ORDERED: ACETAMINOPHEN 325 MG TABLET. PO PRN ×2 (04:30→10:45)
[2021-02-19] MEDS ORDERED: fentaNYL PF VIAL 100 MCG/2 ML VIAL IVP PRN (04:30)
[2021-02-19] MEDS ORDERED: LIDO:MAALOX 1:1 20 ML SINGLE DOSE. SWSW ONE (05:00)
[2021-02-19 05:57] VITALS: BP 153/94
[2021-02-19 07:00] VITALS: BP 166/77
[2021-02-19] MEDS ORDERED: ALBU2.5V8 INH (10:18)
[2021-02-19] MEDS ORDERED: ONDA4TAB7 PO (10:18)
[2021-02-19] MEDS ORDERED: PANT40TA77 PO (10:18)
[2021-02-19] MEDS ORDERED: FERR325T20 PO (10:18)
[2021-02-19] MEDS ORDERED: INSU100C4 SQ (10:18)
[2021-02-19] MEDS ORDERED: OMEG1CAP2 PO (10:29)
[2021-02-19] MEDS ORDERED: IPRA3AMP29 NEB (10:29)
--- NOTE | 2021-02-19 10:34 | PDOC ---
Provider Note Date of Service: DATE: 02/19/21 TIME: 10:33 Provider Note history and physical dictated # [id number] Justifications for Admission Other Justification HARINDER NOGUEIRA MD Feb 19, 2021 10:34
--- NOTE | 2021-02-19 10:41 | PDOC2 ---
VIPIN JOHANSEN [employer] TECHNICIAN 02/19/21 1041: CARDIAC CONSULT DATE OF CONSULT Date of Consult DATE: 02/19/21 TIME: 10:09 REASON FOR CONSULT Reason for Consult: Chest pain REFERRING PHYSICIAN Referring Physician: Catarino SOURCE Source: Chart review, Patient HISTORY OF PRESENT ILLNESS HISTORY OF PRESENT ILLNESS This is a pleasant 60 yo female admitted for complains of chest pain. Reports that this is like poking pain to her midchest followed by burning. Also started having frontal ARANDA throbbing and also numbness and tingling to her left arm with weakness. Also had some blurred vision. She did not check her BP nor her BG at that time. No complains of SOA or diaphoresis or palpitations. She has DM2. HTN but no hx of CVA. She had her first Pfizer covid-19 shot last week. No fever or chills. PAST MEDICAL HISTORY Past Medical History Cardiovascular: HTN, Hyperlipidemia, Other (venous insufficiency), Intermittent LBBB Pulmonary: Asthma CENTRAL NERVOUS SYSTEM: Periperal neuropathy Musculoskeletal: Other (morbid obesity) ENT: Allergic Rhinitis Renal/: UTI Endocrine: Diabetes (2) PAST SURGICAL HISTORY Past Surgical History nasal polypectomy, bilateral tube myringotomy. FAMILY HISTORY Family History noncontributory SOCIAL HISTORY Smoke: No ALCOHOL: none Drugs: None Lives: with Family CURRENT MEDICATIONS CURRENT MEDICATIONS Current Medications Medications (Trade) Dose Ordered Sig/Dorinda Route PRN Reason Start Time Stop Time Status Last Admin Dose Admin Aspirin (Aspirin Chewable) 324 mg 1X ONCE PO 02/19/21 04:00 02/19/21 04:01 DC 02/19/21 03:46 Multi-Ingredient Mouthwash/Gargle (Gi Cocktail) 20 ml 1X ONCE SWSW 02/19/21 05:00 02/19/21 05:01 DC 02/19/21 05:04 ALLERGIES ALLERGIES: Coded Allergies: diphenhydramine (Verified Allergy, Severe, ANAPHYLAXIS, 01/24/16) egg (Verified Allergy, Severe, Anaphylaxis, 01/24/16) salmeterol (Verified Allergy, Severe, Anaphylaxis, throat swells, 08/29/20) ALBUTEROL OK Iodinated Contrast Media (Verified Allergy, Intermediate, 01/24/16) Penicillins (Verified Allergy, Intermediate, Hives, HAS TOLERATED CEPHALEXIN, 08/29/17) Sulfa (Sulfonamide Antibiotics) (Verified Allergy, Intermediate, Hives, 01/24/16) morphine (Verified Allergy, Intermediate, hives, 01/24/16) sulfamethoxazole (Verified Allergy, Intermediate, Hives, 01/24/16) trimethoprim (Verified Allergy, Intermediate, Hives, 01/24/16) ROS Review of System 14 point ROS evaluated with pertinent positives noted per HPI PHYSICAL EXAM General: Alert, Oriented X3, Cooperative, No acute distress HEENT: Atraumatic, Mucous membr. moist/pink Lungs: Clear to auscultation, Normal air movement Heart: Regular rate (SR), Normal S1, Normal S2, No murmurs Abdomen: Soft, No tenderness Extremities: No cyanosis, No edema Skin: No breakdown Neuro: Normal speech, Sensation intact Psych/Mental Status: Mental status NL, Mood NL MUSCULOSKELETAL: Osteoarthritic changes both hands VITALS/I&O VITALS/I&O: Vital Signs Date Time Temp Pulse Resp B/P (MAP) Pulse Ox O2 Delivery O2 Flow Rate FiO2 02/19/21 08:00 Nasal Cannula 1.0 02/19/21 07:00 97.4 67 20 166/77 (106) 100 97.4 I & O 02/18/21 02/18/21 02/19/21 15:00 23:00 07:00 Output Total 150 ml Balance -150 ml LABS Lab: Laboratory Tests Test 02/19/21 03:31 02/19/21 03:37 02/19/21 08:40 White Blood Count 9.2 x10^3/uL (4.0-11.0) Red Blood Count 4.16 x10^6/uL (3.50-5.40) Hemoglobin 10.1 g/dL (12.0-15.5) L Hematocrit 32.2 % (36.0-47.0) L Mean Corpuscular Volume 77 fL (79-100) L Mean Corpuscular Hemoglobin 24 pg (25-35) L Mean Corpuscular Hemoglobin Concent 31 g/dL (31-37) Red Cell Distribution Width 16.3 % (11.5-14.5) H Platelet Count 315 x10^3/uL (140-400) Neutrophils (%) (Auto) 71 % (31-73) Lymphocytes (%) (Auto) 16 % (24-48) L Monocytes (%) (Auto) 9 % (0-9) Eosinophils (%) (Auto) 3 % (0-3) Basophils (%) (Auto) 1 % (0-3) Neutrophils # (Auto) 6.6 x10^3/uL (1.8-7.7) Lymphocytes # (Auto) 1.5 x10^3/uL (1.0-4.8) Monocytes # (Auto) 0.8 x10^3/uL (0.0-1.1) Eosinophils # (Auto) 0.3 x10^3/uL (0.0-0.7) Basophils # (Auto) 0.1 x10^3/uL (0.0-0.2) Prothrombin Time 13.1 SEC (11.7-14.0) Prothrombin Time INR 1.0 (0.8-1.1) D-Dimer (Amarilys) 0.29 ug/mlFEU (0.00-0.50) Sodium Level 140 mmol/L (136-145) Potassium Level 4.2 mmol/L (3.5-5.1) Chloride Level 104 mmol/L (98-107) Carbon Dioxide Level 27 mmol/L (21-32) Anion Gap 9 (6-14) Blood Urea Nitrogen 10 mg/dL (7-20) Creatinine 0.7 mg/dL (0.6-1.0) Estimated GFR (Cockcroft-Gault) 102.6 BUN/Creatinine Ratio 14 (6-20) Glucose Level 146 mg/dL (70-99) H Calcium Level 8.9 mg/dL (8.5-10.1) Phosphorus Level 3.2 mg/dL (2.6-4.7) Magnesium Level 1.9 mg/dL (1.8-2.4) Total Bilirubin 0.2 mg/dL (0.2-1.0) Aspartate Amino Transferase (AST) 20 U/L (15-37) Alanine Aminotransferase (ALT) 22 U/L (14-59) Alkaline Phosphatase 96 U/L (46-116) Creatine Kinase 117 U/L (26-192) Myoglobin 21 ng/mL (9-82) Troponin I Quantitative < 0.017 ng/mL (0.000-0.055) < 0.017 ng/mL (0.000-0.055) GB-Cgw-M-Type Natriuretic Peptide 43 pg/mL (0-124) Total Protein 8.5 g/dL (6.4-8.2) H Albumin 3.5 g/dL (3.4-5.0) Albumin/Globulin Ratio 0.7 (1.0-1.7) L Lipase 210 U/L (73-393) Urine Collection Type Unknown Urine Color Yellow Urine Clarity Clear Urine pH 7.5 (<5.0-8.0) Urine Specific [place] 1.015 (1.000-1.030) Urine Protein Negative mg/dL (NEG-TRACE) Urine Glucose (UA) 100 mg/dL (NEG) Urine Ketones (Stick) Negative mg/dL (NEG) Urine Blood Negative (NEG) Urine Nitrite Negative (NEG) Urine Bilirubin Negative (NEG) Urine Urobilinogen Dipstick 0.2 mg/dL (0.2 mg/dL) Urine Leukocyte Esterase Negative (NEG) Urine RBC 0 /HPF (0-2) Urine WBC 0 /HPF (0-4) Urine Squamous Epithelial Cells Few /LPF Urine Bacteria 0 /HPF (0-FEW) Urine Mucus Slight /LPF Laboratory Tests 02/19/21 03:31 Laboratory Tests 02/19/21 03:31 ECHOCARDIOGRAM ECHOCARDIOGRAM <Conclusion> The left ventricle is normal size. The left ventricular systolic function is normal and the ejection fraction is within normal range. The Ejection Fraction is 60-65%. There is mild concentric left ventricular hypertrophy. Doppler and Color Flow revealed no significant aortic regurgitation. There is no significant aortic valvular stenosis. Doppler and Color Flow revealed no mitral valve regurgitation noted. Doppler and Color Flow revealed no tricuspid valve regurgitation noted. 09/13/2020 STRESS TEST STRESS TEST Conclusion 1. No evidence of EKG changes with stress testing. 2. Normal perfusion at stress/rest. 3. Low risk study. 4. EF > 60%. DATE: 09/20/20 [id number] 0 ASSESSMENT/PLAN ASSESSMENT/PLAN 1. Atypical CP: possibly GI 2. ARANDA with brief left arm weakness, no further recurrence, potentially from hypoglycemia 3. HTN: labile 5. Hyperlipidemia; statin 6. DM2: on insulin 7. Morbid obesity 8. Hx of ventral hernia 9. Hx of intermittent LBBB 10. Recently vaccinated with Pfizer last week Recommendations Reviewed recent MPI and TTE. No further imaging warranted. However if her CP recurs then will consider further ischemic workup as an outpt Continue secondary prevention measures. Continue home PPI. Diet modification Will need to rule out CVA. CT head no contrast SETH NAVARRETE MD 02/20/21 0633: CARDIAC CONSULT ASSESSMENT/PLAN ASSESSMENT/PLAN Patient seen and examined 02/19/21. Agree with DIRECTOR OF CAPITAL GIVING's assessment and plan CP with atypical features CO ruled out Recent echo showed normal LVEF and MPI did not show any significant ischemia Thank you for your consultation VIPIN JOHANSEN APRN Feb 19, 2021 10:41 SETH NAVARRETE MD Feb 20, 2021 06:33
[2021-02-19] MEDS ORDERED: ONDANSETRON ODT 4 MG TAB.RAPDIS. PO PRN (10:45)
[2021-02-19 10:52] VITALS: BP 172/77
[2021-02-19] MEDS: POTASSIUM CHLORIDE 20 MEQ TABLET.ER. PO SCH (11:00)
[2021-02-19] MEDS: METOCLOPRAMIDE 10 MG TABLET. PO SCH ×3 (11:22→20:38)
[2021-02-19] MEDS: FUROSEMIDE 40 MG TABLET. PO SCH (11:22)
[2021-02-19] MEDS: metFORMIN 500 MG TABLET PO SCH ×2 (11:22→17:29)
[2021-02-19] MEDS: LOSARTAN POTASSIUM 50 MG TABLET. PO SCH (11:22)
[2021-02-19] MEDS: PANTOPRAZOLE 40 MG TABLET.DR. PO SCH (11:22)
[2021-02-19] MEDS: NAPROXEN 500 MG TABLET PO SCH ×2 (11:23→20:38)
--- NOTE | 2021-02-19 11:44 | HP ---
ADMIT DATE: 02/19/2021 LOCATION: She is in room 654. HISTORY OF PRESENT ILLNESS: The patient is a 60-year-old morbidly obese -Al[place] female with a history of diabetes mellitus, hypertension, hyperlipidemia and asthma, who was admitted to [facility] through the emergency room on 02/19/2021 with the onset of retrosternal chest burning, which began when she went to bed. It did radiate to the left shoulder and also had some burning in her mouth. She sought help with a [facility] Emergency Room and was evaluated by the ER doctor, who supplemented her to the hospital. She admits with some shortness of breath, but denied any diaphoresis, nausea or vomiting. She is therefore admitted to the hospital for further evaluation and treatment of her chest discomfort. She denies any exertional chest discomfort nor she had this type of discomfort in the past. Denies any dysphagia or odynophagia. ALLERGIES AND INTOLERANCES: INCLUDE ELAVIL, CODEINE, EGGS, ERYTHROMYCIN, FLONASE, HYDROCHLOROTHIAZIDE, LEVAQUIN, PENICILLIN, SULFA, TRIAMTERENE AND SALMETEROL. MEDICATIONS: Include amlodipine 10 mg every day, aspirin 81 mg every day, atorvastatin 80 mg every day, ferrous sulfate 325 mg b.i.d., furosemide 40 mg every day, gabapentin 300 mg t.i.d., DuoNeb nebulizer treatments every 4 hours p.r.n., losartan 100 mg every day, Lovaza 4 grams every day, metformin 500 mg b.i.d., metoclopramide 10 mg before meals t.i.d. and at bedtime, low dose NovoLog sliding scale before meals t.i.d., potassium chloride 20 mEq every day, ProAir inhaler p.r.n., Protonix 40 mg every day, Singulair 10 mg at bedtime, Symbicort 160/4.5 mcg 2 puffs b.i.d. and Zofran 4 mg b.i.d. PAST MEDICAL HISTORY: Significant for diabetes mellitus type 2, hypertension, hyperlipidemia, asthma, morbid obesity, ventral hernia, gastroesophageal reflux disease, nasal polypectomy. PAST SURGICAL HISTORY: Bilateral two myringotomies. SOCIAL HISTORY: She does not drink alcohol nor does she smoke cigarettes. FAMILY HISTORY: Noncontributory. REVIEW OF SYSTEMS: GENERAL: She denies any fever, chills or sweats in last 3 days. CARDIOVASCULAR: She had the chest pain. PULMONARY: Some shortness of breath associated with chest pain. GASTROINTESTINAL: No vomiting. ENDOCRINE: She has diabetes mellitus. SKIN: No rashes. Rest of review of systems reviewed and are negative except as stated in the history of present illness. PHYSICAL EXAMINATION: VITAL SIGNS: Temperature 97.4 degrees, heart rate is regular at 67, respiratory rate 20, blood pressure 166/77 and her oxygen saturation 100% on room air. HEENT: Eyes: Gaze is conjugate. Extraocular muscles are intact. Mouth: Tongue is midline. There is no yeast. NECK: No cervical lymphadenopathy or thyroid enlargement. CARDIAC: Reveals S1, S2. There is no S3 or murmur. CHEST: Reproduces the pain that she was having with pressing on her sternal area and she denied any recent trauma. LUNGS: Clear. She does have some upper airway rhonchi, which forced inspiration. ABDOMEN: Obese, soft, nontender. LOWER EXTREMITIES: Without edema. SKIN: No rashes. NEUROLOGIC: Coherent with no focal weakness in arms or legs. REVIEW OF LABORATORY TEST: White count is 9.3, hemoglobin 10.1 with MCV of 77, platelet count was 315,000, 71 polys and 16 lymphocytes. INR was 1.0. D-dimer 0.29. Sodium 140, potassium 4.2, chloride 104, total CO2 of 27, BUN 10, creatinine 0.7, blood sugar 146. Liver function tests normal. Albumin 3.5, lipase was 210. ProBNP 43. The troponin levels negative x 2. CPK 117. Urinalysis was negative. No white cells or red blood cells. The chest x-ray showed mild ill-defined bibasilar opacities, no pleural effusion, no pneumothorax, unchanged heart size. She had an electrocardiogram done. IMPRESSION: 1. Atypical chest pain. Chest pain is a burning sensation and it is reproduced with pressing on her sternal area. 2. Diabetes. 3. Hypertension. 4. Hyperlipidemia. 5. Asthma. 6. Morbid obesity. 7. Gastroesophageal reflux disease. 8. Anemia. 9. History of ventral hernia. PLAN: At this time is obtained cardiology consult. Her troponin levels negative x 2 and she has another one on the way. An echocardiogram by the way was done on 09/13/2020 that showed a left ventricular ejection fraction, I believe a 65% with mild left ventricular hypertrophy and was otherwise unremarkable. We will continue with her home medications for diabetes, hypertension, hyperlipidemia. Consult her mlt. Also, she has not received any of her morning medications or any medications since she has been admitted. So, I spoke with the nurse, gave her a list of her office medications and they are putting it in the computer now, so we can get her antihypertensive medications order as her blood pressure is elevated. Again, she has not received any medications either since she was admitted in the middle of the night and that will be including amlodipine and losartan for her hypertension. JONATHON/TOMY DR: Vivek TID: [id number]
[2021-02-19] MEDS: INSULIN LISPRO 300 UNITS/3 ML VIAL. SQ SCH ×2 (12:00→17:00)
--- NOTE | 2021-02-19 12:33 | RAD ---
EXAMINATION: CT HEAD/BRAIN WO CLINICAL HISTORY: ARANDA, left arm weakness, rule out CVA TECHNIQUE: Serial axial images without IV contrast were obtained from the vertex to the foramen magnu m. CT Dose Reduction Employed: One or more of the following individualized dose reduction techniques wer e utilized for this examination: 1. Automated exposure control 2. Adjustment of the mA and/or kV ac cording to patient size 3. Use of iterative reconstruction technique. COMPARISON: None FINDINGS: Acute Change: No evidence of an acute infarct or other acute parenchymal process. Hemorrhage: No evidence of acute intracranial hemorrhage. Mass Lesion/Mass Effect: No evidence of intracranial mass or extraaxial fluid collection. No signific ant mass effect. Parenchyma: Mild generalized volume loss. Ventricles: Ventricles within normal limits for age. Paranasal Sinuses and Skull Base: Paranasal sinus postoperative changes in partially visualized right maxillary mucoperiosteal thickening. Partially opacified right mastoid air cells. Visualized skull b ase and soft tissues unremarkable. IMPRESSION: No evidence of acute intracranial abnormality. If concern for acute CVA persists, recommend MRI for f urther evaluation. Partially opacified right mastoid air cells, nonspecific but can be seen with mastoiditis. Correlate clinically. Electronically signed by: Jose Miguel Steiner DO (02/19/2021 12:31 PM) [facility]
--- NOTE | 2021-02-19 13:14 | NUR ---
SS following for discharge planning. SS reviewed pt chart and discussed with pt RN. Pt is from home with family and is currently requiring oxygen at one liter nasal canula. Cardiology consulted. SS will continue to follow for discharge planning.
[2021-02-19] MEDS: IPRATRPIUM/ALBUTEROL 0.5/2.5MG 3 ML NEBU. NEB PRN (13:49)
[2021-02-19] MEDS: GABAPENTIN 300 MG CAPSULE. PO SCH ×2 (14:23→20:38)
[2021-02-19 15:00] VITALS: BP 178/80
[2021-02-19 19:18] VITALS: BP 144/70
[2021-02-19] MEDS: FERROUS SULFATE 325 MG TABLET. PO SCH (20:37)
[2021-02-19] MEDS ORDERED: MONTELUKAST SODIUM 10 MG TABLET. PO SCH (21:00)
[2021-02-19] MEDS ORDERED: ATORVASTATIN CALCIUM 40 MG TABLET. PO SCH (21:00)
[2021-02-19 23:14] VITALS: BP 136/73
[2021-02-20 03:55] VITALS: BP 131/77
[2021-02-20 04:43] LABS: CHOLESTEROL/HDL RATIO 2.6
[2021-02-20 07:47] VITALS: BP 149/69
[2021-02-20] MEDS ORDERED: ASPIRIN CHEWABLE 81 MG TABLET. PO SCH (08:00)
[2021-02-20] MEDS: INSULIN LISPRO 300 UNITS/3 ML VIAL. SQ SCH ×2 (08:00→12:00)
[2021-02-20] MEDS: NAPROXEN 500 MG TABLET PO SCH (08:44)
[2021-02-20] MEDS: GABAPENTIN 300 MG CAPSULE. PO SCH (08:44)
[2021-02-20] MEDS: metFORMIN 500 MG TABLET PO SCH (08:44)
[2021-02-20] MEDS: METOCLOPRAMIDE 10 MG TABLET. PO SCH ×2 (08:44→12:04)
[2021-02-20] MEDS: POTASSIUM CHLORIDE 20 MEQ TABLET.ER. PO SCH (08:45)
[2021-02-20] MEDS: FERROUS SULFATE 325 MG TABLET. PO SCH (08:45)
[2021-02-20] MEDS: LOSARTAN POTASSIUM 50 MG TABLET. PO SCH (08:45)
[2021-02-20] MEDS: PANTOPRAZOLE 40 MG TABLET.DR. PO SCH (08:45)
[2021-02-20] MEDS: FUROSEMIDE 40 MG TABLET. PO SCH (08:47)
[2021-02-20] MEDS: IPRATRPIUM/ALBUTEROL 0.5/2.5MG 3 ML NEBU. NEB PRN (09:23)
--- NOTE | 2021-02-20 10:03 | PDOC ---
PROGRESS NOTES Date of Service DATE: 02/20/21 TIME: 10:00 Subjective Subjective feels well. has chest wall tenderness over sternal area which reproduces her pain. note echo and MPI stress test normal 09/28. troponin negative. lab reviewed. Objective Objective Vital Signs Date Time Temp Pulse Resp B/P (MAP) Pulse Ox O2 Delivery O2 Flow Rate FiO2 02/20/21 09:23 100 Nasal Cannula 2.0 02/20/21 08:45 69 149/69 02/20/21 07:47 98.3 18 98.3 Intake and Output 02/20/21 07:00 Intake Total 0 ml Balance 0 ml Intake Oral 0 ml Physical Exam Abdomen: Normal bowel sounds, Soft, Other (obese) Heart: Regular rate, Normal S1, Normal S2 Extremities: No edema General: Alert HEENT: Atraumatic Lungs: Clear to auscultation MUSCULOSKELETAL: Other (tender over sternal area which reproduces chest pain) Neuro: Normal speech Psych/Mental Status: Mental status NL Skin: No rashes Assessment Assessment Problems Medical Problems:1. Atypical chest pain due to costochondritis. echo okay and MPI stress test normal in 09/28 2. Diabetes. 3. Hypertension. 4. Hyperlipidemia. 5. Asthma. 6. Morbid obesity. 7. Gastroesophageal reflux disease. 8. Anemia. 9. History of ventral hernia. (1) Chest pain Status: Acute Plan Plan of Care continue naproxen dismiss today Comment Review of Relevant I have reviewed the following items jose g (where applicable) has been applied. Labs Laboratory Tests Test 02/19/21 03:31 02/19/21 03:37 02/19/21 08:40 02/19/21 12:04 White Blood Count 9.2 x10^3/uL (4.0-11.0) Red Blood Count 4.16 x10^6/uL (3.50-5.40) Hemoglobin 10.1 g/dL (12.0-15.5) Hematocrit 32.2 % (36.0-47.0) Mean Corpuscular Volume 77 fL (79-100) Mean Corpuscular Hemoglobin 24 pg (25-35) Mean Corpuscular Hemoglobin Concent 31 g/dL (31-37) Red Cell Distribution Width 16.3 % (11.5-14.5) Platelet Count 315 x10^3/uL (140-400) Neutrophils (%) (Auto) 71 % (31-73) Lymphocytes (%) (Auto) 16 % (24-48) Monocytes (%) (Auto) 9 % (0-9) Eosinophils (%) (Auto) 3 % (0-3) Basophils (%) (Auto) 1 % (0-3) Neutrophils # (Auto) 6.6 x10^3/uL (1.8-7.7) Lymphocytes # (Auto) 1.5 x10^3/uL (1.0-4.8) Monocytes # (Auto) 0.8 x10^3/uL (0.0-1.1) Eosinophils # (Auto) 0.3 x10^3/uL (0.0-0.7) Basophils # (Auto) 0.1 x10^3/uL (0.0-0.2) Prothrombin Time 13.1 SEC (11.7-14.0) Prothromb Time International Ratio 1.0 (0.8-1.1) D-Dimer (Amarilys) 0.29 ug/mlFEU (0.00-0.50) Sodium Level 140 mmol/L (136-145) Potassium Level 4.2 mmol/L (3.5-5.1) Chloride Level 104 mmol/L (98-107) Carbon Dioxide Level 27 mmol/L (21-32) Anion Gap 9 (6-14) Blood Urea Nitrogen 10 mg/dL (7-20) Creatinine 0.7 mg/dL (0.6-1.0) Estimated GFR (Cockcroft-Gault) 102.6 BUN/Creatinine Ratio 14 (6-20) Glucose Level 146 mg/dL (70-99) Calcium Level 8.9 mg/dL (8.5-10.1) Phosphorus Level 3.2 mg/dL (2.6-4.7) Magnesium Level 1.9 mg/dL (1.8-2.4) Total Bilirubin 0.2 mg/dL (0.2-1.0) Aspartate Amino Transf (AST/SGOT) 20 U/L (15-37) Alanine Aminotransferase (ALT/SGPT) 22 U/L (14-59) Alkaline Phosphatase 96 U/L (46-116) Creatine Kinase 117 U/L (26-192) Myoglobin 21 ng/mL (9-82) Troponin I Quantitative < 0.017 ng/mL (0.000-0.055) < 0.017 ng/mL (0.000-0.055) QM-Yox-Q-Type Natriuretic Peptide 43 pg/mL (0-124) Total Protein 8.5 g/dL (6.4-8.2) Albumin 3.5 g/dL (3.4-5.0) Albumin/Globulin Ratio 0.7 (1.0-1.7) Lipase 210 U/L (73-393) Urine Collection Type Unknown Urine Color Yellow Urine Clarity Clear Urine pH 7.5 (<5.0-8.0) Urine Specific [place] 1.015 (1.000-1.030) Urine Protein Negative mg/dL (NEG-TRACE) Urine Glucose (UA) 100 mg/dL (NEG) Urine Ketones (Stick) Negative mg/dL (NEG) Urine Blood Negative (NEG) Urine Nitrite Negative (NEG) Urine Bilirubin Negative (NEG) Urine Urobilinogen Dipstick 0.2 mg/dL (0.2 mg/dL) Urine Leukocyte Esterase Negative (NEG) Urine RBC 0 /HPF (0-2) Urine WBC 0 /HPF (0-4) Urine Squamous Epithelial Cells Few /LPF Urine Bacteria 0 /HPF (0-FEW) Urine Mucus Slight /LPF Glucose (Fingerstick) 93 mg/dL (70-99) Test 02/19/21 12:10 02/19/21 17:32 02/19/21 17:35 02/19/21 20:33 Troponin I Quantitative < 0.017 ng/mL (0.000-0.055) < 0.017 ng/mL (0.000-0.055) Glucose (Fingerstick) 100 mg/dL (70-99) 123 mg/dL (70-99) Test 02/20/21 03:10 02/20/21 07:50 Triglycerides Level 96 mg/dL (0-150) Cholesterol Level 160 mg/dL (0-200) LDL Cholesterol, Calculated 80 mg/dL (0-100) VLDL Cholesterol, Calculated 19 mg/dL (0-40) Non-HDL Cholesterol Calculated 99 mg/dL (0-129) HDL Cholesterol 61 mg/dL (40-60) Cholesterol/HDL Ratio 2.6 Glucose (Fingerstick) 134 mg/dL (70-99) Laboratory Tests Test 02/19/21 12:04 02/19/21 12:10 02/19/21 17:32 02/19/21 17:35 Glucose (Fingerstick) 93 mg/dL (70-99) 100 mg/dL (70-99) Troponin I Quantitative < 0.017 ng/mL (0.000-0.055) < 0.017 ng/mL (0.000-0.055) Test 02/19/21 20:33 02/20/21 03:10 02/20/21 07:50 Glucose (Fingerstick) 123 mg/dL (70-99) 134 mg/dL (70-99) Triglycerides Level 96 mg/dL (0-150) Cholesterol Level 160 mg/dL (0-200) LDL Cholesterol, Calculated 80 mg/dL (0-100) VLDL Cholesterol, Calculated 19 mg/dL (0-40) Non-HDL Cholesterol Calculated 99 mg/dL (0-129) HDL Cholesterol 61 mg/dL (40-60) Cholesterol/HDL Ratio 2.6 Medications Current Medications Aspirin (Aspirin Chewable) 324 mg 1X ONCE PO Last administered on 02/19/21at 03:46; Start 02/19/21 at 04:00; Stop 02/19/21 at 04:01; Status DC Ondansetron HCl (Zofran) 4 mg PRN Q8HRS PRN IVP NAUSEA/VOMITING 1ST CHOICE; Start 02/19/21 at 04:30; Stop 02/20/21 at 04:29; Status DC Fentanyl Citrate (Fentanyl 2ml Vial) 50 mcg PRN Q1HR PRN IVP SEVERE PAIN 7-10; Start 02/19/21 at 04:30; Stop 02/20/21 at 04:29; Status DC Acetaminophen (Tylenol) 650 mg PRN Q4HRS PRN PO FEVER > 100.3'F; Start 02/19/21 at 04:30; Stop 02/20/21 at 04:29; Status DC Multi-Ingredient Mouthwash/Gargle (Gi Cocktail) 20 ml 1X ONCE SWSW Last administered on 02/19/21at 05:04; Start 02/19/21 at 05:00; Stop 02/19/21 at 05:01; Status DC Amlodipine Besylate (Norvasc) 10 mg DAILY PO Last administered on 02/20/21 08:45; Start 02/19/21 at 11:00 Aspirin (Aspirin Chewable) 81 mg DAILYWBKFT PO Last administered on 02/20/21 08:44; Start 02/20/21 at 08:00 Atorvastatin Calcium (Lipitor) 80 mg QHS PO Last administered on 02/19/21 20:38; Start 02/19/21 at 21:00 Ferrous Sulfate (Feosol) 325 mg BIDWMEALS PO Last administered on 02/20/21 08:45; Start 02/19/21 at 21:00 Furosemide (Lasix) 40 mg DAILY PO Last administered on 02/20/21 08:47; Start 02/19/21 at 11:00 Gabapentin (Neurontin) 300 mg TID PO Last administered on 02/20/21 08:44; Start 02/19/21 at 14:00 Albuterol/ Ipratropium (Duoneb) 3 ml PRN Q4HRS PRN NEB WHEEZING Last administered on 02/20/21 09:23; Start 02/19/21 at 10:45 Losartan Potassium (Cozaar) 100 mg DAILY PO Last administered on 02/20/21 08:45; Start 02/19/21 at 11:00 Metformin HCl (Glucophage) 500 mg BIDWMEALS PO Last administered on 02/20/21 08:44; Start 02/19/21 at 12:00 Metoclopramide HCl (Reglan) 10 mg QIDACHS PO Last administered on 02/20/21 08:44; Start 02/19/21 at 11:30 Potassium Chloride (Klor-Con) 20 meq DAILY08 PO Last administered on 02/20/21 08:45; Start 02/19/21 at 11:00 Pantoprazole Sodium (Protonix) 40 mg DAILYAC PO Last administered on 02/20/21 08:45; Start 02/19/21 at 11:30 Montelukast Sodium (Singulair) 10 mg QHS PO Last administered on 02/19/21 20:37; Start 02/19/21 at 21:00 Ondansetron HCl (Zofran Odt) 4 mg PRN Q6HRS PRN PO NAUSEA/VOMITING; Start 02/19/21 at 10:45 Acetaminophen (Tylenol) 650 mg PRN Q6HRS PRN PO MILD PAIN / TEMP > 100.3'F; Start 02/19/21 at 10:45 Naproxen (Naprosyn) 500 mg BID PO Last administered on 02/20/21at 08:44; Start 02/19/21 at 11:00 Insulin Human Lispro (HumaLOG) 0-6 UNITS BG 300-39... TIDWMEALS SQ ; Start 02/19/21 at 12:00 Active Scripts Active Symbicort 160-4.5 Mcg Inhaler (Budesonide/Formoterol Fumarate) 10.2 Gm Hfa.aer.ad 2 Puff IH BID Glucophage (Metformin Hcl) 500 Mg Tablet 500 Mg PO BIDWMEALS Amlodipine Besylate 10 Mg Tablet 10 Mg PO DAILY Atorvastatin Calcium 40 Mg Tablet 80 Mg PO QHS Metoclopramide Hcl 10 Mg Tablet 10 Mg PO QIDACHS 30 Days Cozaar (Losartan Potassium) 50 Mg Tablet 100 Mg PO DAILY 30 Days Montelukast Sodium Tablet (Montelukast Sodium) 10 Mg Tablet 10 Mg PO QHS Klor-Con M20 (Potassium Chloride) 20 Meq Tablet.er 20 Meq PO DAILYWBKFT Reported Lovaza (Round Top-3 Acid Ethyl Esters) 1 Gm Capsule 4 Gm PO DAILY Duoneb 0.5-3(2.5) Mg/3 Ml (Albuterol/Ipratropium) 3 Ml Ampul.neb 3 Ml NEB QID Ferosul (Ferrous Sulfate) 325 Mg Tablet 325 Mg PO BID Novolog (Insulin Aspart) 100 Unit/1 Ml Cartridge 100 Unit SQ TID Proair Hfa (Albuterol Sulfate) 8.5 Gm Hfa.aer.ad 1 Puff INH PRN Q6HRS PRN Protonix (Pantoprazole Sodium) 40 Mg Tablet.dr 40 Mg PO DAILYAC Zofran (Ondansetron Hcl) 4 Mg Tablet 4 Mg PO BID PRN Proair Hfa (Albuterol Sulfate) 8.5 Gm Hfa.aer.ad 2 Puff IH PRN Q4-6HRS PRN 21 Days Gabapentin (Gabapentin) 300 Mg Capsule 300 Mg PO TID Furosemide 40 Mg Tablet 1 Tab PO DAILY Aspir-Low (Aspirin) 81 Mg Tablet.dr 1 Tab PO DAILY LAST DOSE: 10/03/15 AM NEXT DOSE: 10/04/15 AM Albuterol Sulfate Conc Neb Soln (Albuterol Sulfate) 2.5 Mg/0.5 Ml Vial.neb 2.5 Mg IH TID Vitals/I & O Vital Sign - Last 24 Hours 02/19/21 02/19/21 02/19/21 02/19/21 10:52 11:22 11:22 13:49 Temp 97.8 97.8 Pulse 69 69 69 Resp 18 B/P (MAP) 172/77 (108) 172/77 172/77 Pulse Ox 97 96 O2 Delivery Room Air Room Air 02/19/21 02/19/21 02/19/21 02/20/21 15:00 19:18 23:14 03:55 Temp 97.3 97.8 97.5 97.5 97.3 97.8 97.5 97.5 Pulse 71 67 66 63 Resp 16 16 16 16 B/P (MAP) 178/80 (112) 144/70 (94) 136/73 (94) 131/77 (95) Pulse Ox 99 100 100 100 O2 Delivery Nasal Cannula Nasal Cannula Nasal Cannula Nasal Cannula O2 Flow Rate 2.0 2.0 2.0 2.0 02/20/21 02/20/21 02/20/21 02/20/21 07:47 08:45 08:45 09:23 Temp 98.3 98.3 Pulse 69 69 69 Resp 18 B/P (MAP) 149/69 (95) 149/69 149/69 Pulse Ox 100 100 O2 Delivery Nasal Cannula Nasal Cannula O2 Flow Rate 2.0 2.0 Intake and Output 02/19/21 02/19/21 02/20/21 15:00 23:00 07:00 Intake Total 0 ml 0 ml 0 ml Balance 0 ml 0 ml 0 ml Justifications for Admission Other Justification HARINDER NOGUEIRA MD Feb 20, 2021 10:03
[2021-02-20] MEDS ORDERED: IPRA3AMP29 NEB (10:08)
[2021-02-20] MEDS ORDERED: NAPR-683 PO (10:08)
--- NOTE | 2021-02-20 10:09 | DISCH ---
DISCHARGE INSTRUCTIONS Condition on Discharge Condition on Discharge: Stable Activity After Discharge Activity Instructions for Disc: Activity as tolerated Weight Bearing Status after Di: No restrictions, As tolerated Diet after Discharge Diet after Discharge: Diabetic No Calorie Level Additional Diet Restrictions: 1800 calorie ada diet Diet Texture: Regular Liquid Texture: Thin Liquid Swallowing Supervision: None needed Checks after Discharge Checks after discharge: Check blood press - daily, Check blood sugar, ac/hs Contacting the DR. after DC Call your doctor for: If your condition worsens Follow-Up Follow up with: dr. nogueira next week Treatment/Equipment after DC Adaptive Equipment Issued: None HARINDER NOGUEIRA MD Feb 20, 2021 10:09
--- NOTE | 2021-02-20 10:15 | PDOC ---
Provider Note Date of Service: DATE: 02/20/21 TIME: 10:14 Provider Note discharge summary dictated # [id number] Justifications for Admission Other Justification HARINDER NOGUEIRA MD Feb 20, 2021 10:15
--- NOTE | 2021-02-20 10:37 | NUR ---
SS following up with discharge planning. SS reviewed pt chart and discussed with pt RN. Pt is currently on room air. Discharge order on the chart for home with self care.
--- NOTE | 2021-02-20 11:09 | DS ---
DATE OF DISCHARGE: 02/20/2021 DATE OF ANTICIPATED DISMISSAL: 02/20/2021. CONSULTANTS: Zuhair Haq MD. FINAL DIAGNOSES: 1. Chest wall pain secondary to costochondral chest pain/costochondritis. 2. Diabetes. 3. Hypertension. 4. Hyperlipidemia. 5. Asthma. 6. Morbid obesity. 7. Gastroesophageal reflux disease. 8. Anemia, which is chronic. 9. History of ventral abdominal hernia. HOSPITAL COURSE: The patient is a 60-year-old morbidly obese -[place] female with history of diabetes mellitus type 2, hypertension, hyperlipidemia, and asthma, admitted to [facility] through the emergency room on 02/19/2021 with the onset of retrosternal chest burning, which began when she went to bed. The patient sought help with the [facility] Emergency Room. EKG showed no acute change and the cardiac enzymes were negative x 3, seen by Dr. Haq for Cardiology. CT of the head was done, which was negative for a stroke reported by the nurse practitioner land classifier but her history was not indicative of a stroke. Chest was tender to touch in the sternal area without any trauma, she says that reproduced her chest pain, so she was thought to have costochondral chest pain/costochondritis, was started on naproxen yesterday 500 mg b.i.d. and she is much more comfortable today. She did have an echocardiogram in 09/2020, which showed a preserved left ventricular ejection fraction and mild left ventricular hypertrophy and she also passed her myocardial perfusion imaging stress test also done in 09/2020. It was felt that she had atypical chest pain secondary to costochondritis and costochondral chest pain and she will be dismissed to home on amlodipine 10 mg every day, aspirin 81 mg every day, atorvastatin 80 mg every day, ferrous sulfate 325 mg b.i.d., furosemide 40 mg every day, gabapentin 300 mg t.i.d., DuoNeb nebulizer treatments every 4 hours p.r.n., losartan 100 mg every day, Lovaza 4 grams daily, metformin 500 mg b.i.d., metoclopramide 10 mg before meals t.i.d. and at bedtime, low-dose NovoLog insulin sliding scale before meals t.i.d., potassium chloride 20 mEq every day, ProAir inhaler 1-2 puffs every 4 hours p.r.n., Protonix 40 mg every day, Singulair 10 mg at bedtime, Symbicort 160/4.5 mcg 2 puffs b.i.d., Zofran 4 mg b.i.d. p.r.n. and also naproxen 500 mg 1 tablet after meals b.i.d. 30 tablets, no refills. Potential side effects discussed. She was told to make an appointment to see Dr. Niño in the office next week. NAYELY/GABRIELA/JOSEPH DR: Vivek TID: [id number]
[2021-02-20 11:18] VITALS: BP 126/59
--- NOTE | 2021-02-20 12:24 | PDOC ---
VIPIN JOHANSEN MANAGER CHEMICAL 02/20/21 1224: CARDIO Progress Notes Date and Time Date of Service 02/20/2021 Time of Evaluation 1030 Subjective Subjective: No Chest Pain, No shortness of breath, No Palpitations Vitals Vitals Vital Signs Date Time Temp Pulse Resp B/P (MAP) Pulse Ox O2 Delivery O2 Flow Rate FiO2 02/20/21 11:18 98.0 71 18 126/59 (81) 96 Room Air 98.0 02/20/21 09:23 2.0 Weight Weight [ ] Input and Output Intake and Output Intake and Output 02/20/21 07:00 Intake Total 0 ml Balance 0 ml Intake Oral 0 ml Laboratory Labs Laboratory Tests Test 02/19/21 17:32 02/19/21 17:35 02/19/21 20:33 02/20/21 03:10 Glucose (Fingerstick) 100 mg/dL (70-99) 123 mg/dL (70-99) Troponin I Quantitative < 0.017 ng/mL (0.000-0.055) Triglycerides Level 96 mg/dL (0-150) Cholesterol Level 160 mg/dL (0-200) LDL Cholesterol, Calculated 80 mg/dL (0-100) VLDL Cholesterol, Calculated 19 mg/dL (0-40) Non-HDL Cholesterol Calculated 99 mg/dL (0-129) HDL Cholesterol 61 mg/dL (40-60) Cholesterol/HDL Ratio 2.6 Test 02/20/21 07:50 02/20/21 11:47 Glucose (Fingerstick) 134 mg/dL (70-99) 77 mg/dL (70-99) Physical Exam HEENT: Neck Supple W Full Motion Chest: Symmetric LUNGS: Other (diminished bases) Heart: RRR (SR) Abdomen: Soft N/T Extremities: No Calf Tenderness Neurology: alert, oriented, follow commands Assessment Assessment 1. Atypical CP: possibly GI 2. ARANDA with brief left arm weakness, no further recurrence, potentially from hypoglycemia. CT negative for acute changes 3. HTN: controlled 5. Hyperlipidemia; statin 6. DM2: on insulin 7. Morbid obesity 8. Hx of ventral hernia 9. Hx of intermittent LBBB 10. Recently vaccinated with Pfizer last week Recommendations Reviewed recent MPI and TTE. No further imaging warranted. However if her CP recurs then will consider further ischemic workup as an outpt Continue secondary prevention measures. Continue home PPI. Diet modification Justicifation of Admission Dx: Justifications for Admission: Justification of Admission Dx: Yes SETH NAVARRETE MD 02/20/212042: CARDIO Progress Notes Assessment Assessment Patient seen and examined. Agree with CHIEF DIGITAL MEDIA OFFICER's assessment and plan CP with atypical features MO ruled out Recent echo showed normal LVEF and MPI did not show any significant ischemia OK for DC from cardiac standpoint VIPIN JOHANSEN APRN Feb 20, 2021 12:24 SETH NAVARRETE MD Feb 20, 2021 20:43
--- NOTE | 2021-02-20 13:50 | NUR ---
Discharge Note: YENNIFER CANCINO Discharge instructions and discharge home medications reviewed with Patient and a copy given. All questions have been answered and understanding verbalized. The following instructions and handouts were given: chest pain, Duoneb, Naproxen Patient discharged to home with self care via wheelchair.
== END 2021-02-20 13:50 | disposition home or self-care (01) | DRG 206 ==
LOC: ER 02:35 → 6 SOUTH 04:15 → OBSVTOIN 10:42
PROVIDERS: ADMIT Internal Medicine; ATTEND Internal Medicine
DX: M94.0 Chondrocostal junction syndrome [Tietze] (principal); Z68.43 Body mass index [BMI] 50.0-59.9, adult; D64.9 Anemia, unspecified; E66.01 Morbid (severe) obesity due to excess calories; E78.00 Pure hypercholesterolemia, unspecified; E78.5 Hyperlipidemia, unspecified; I10 Essential (primary) hypertension; J45.909 Unspecified asthma, uncomplicated; I44.7 Left bundle-branch block, unspecified; E11.42 Type 2 diabetes mellitus with diabetic polyneuropathy; K21.9 Gastro-esophageal reflux disease without esophagitis; Z79.4 Long term (current) use of insulin; Z79.51 Long term (current) use of inhaled steroids; Z79.82 Long term (current) use of aspirin; Z79.84 Long term (current) use of oral hypoglycemic drugs; Z79.899 Other long term (current) drug therapy; Z88.5 Allergy status to narcotic agent; Z88.0 Allergy status to penicillin; Z88.2 Allergy status to sulfonamides; Z88.8 Allergy status to other drugs, medicaments and biological substances; Z91.041 Radiographic dye allergy status; Z91.012 Allergy to eggs; Z87.440 Personal history of urinary (tract) infections
CPT/HCPCS: 36415; 70450; 71045; 80053; 80061; 81001; 82550; 82962; 83690; 83735; 83874; 83880; 84100; 84484; 85025; 85379; 85610; 93005; 94640; 94760; G0378; G0379; J1815; 99285-25